=== PATIENT | female | born 1975 | race African-American/Black ===

== ENCOUNTER 2022-12-24 11:55 | Outpatient (REF) | payer OTHER, SELFPAY ==
[2022-12-24 13:50] LABS: MANUAL DIFF FLAG NO
[2022-12-24 13:57] LABS: Basophils Absolute Auto 0.1 X10*3/uL (0.0-0.2); Basophils Percent Auto 0.4 % (0-2); Eosinophils Absolute Auto 0.2 X10*3/uL (0.0-0.4); Eosinophils Percent Auto 1.3 % (0-4); Hematocrit 40.4 % (42.0-52.0); Hemoglobin 12.7 g/dl (14.0-18.0); Imm Gran Abs Auto 0.09 X10*3/uL (0.00-0.03); Imm Gran Pct Auto 0.8 % (0.0-0.4); Lymphocytes Absolute Auto 3.1 X10*3/uL (1.2-4.9); Lymphocytes Percent Auto 25.7 % (20-40); Mean Corpuscular HGB Conc 31.4 g/dl (31.0-36.0); Mean Corpuscular Hemoglobin 26.9 pg (27.0-33.0); Mean Corpuscular Volume 85.6 fL (80.0-98.0); Mean Platelet Volume 11.8 fL (9.4-12.4); Monocytes Absolute Auto 0.8 X10*3/uL (0.1-1.2); Monocytes Percent Auto 7.1 % (2-11); Neutrophils Absolute Auto 7.7 x10*3/uL (2.0-8.3); Neutrophils Percent Auto 64.7 % (45-73); Platelet Count 316 X10*3/uL (160-400); Red Blood Count 4.72 X10*6/uL (4.60-5.80); White Blood Count 11.9 X10*3/uL (4.8-10.8)
[2022-12-24 14:56] LABS: Alanine Aminotransferase 30 U/L (0-40); Albumin Level 3.8 g/dL (3.5-5.0); Alkaline Phosphatase 93 U/L (39-117); Anion Gap 11 (12-20); Aspartate Amino Transferase 25 U/L (5-37); Bilirubin Total 0.3 mg/dL (0.0-1.0); Blood Urea Nitrogen 8 mg/dL (9-16); Carbon Dioxide 24 mmol/L (22-29); Chloride 108 mmol/L (96-108); Cholesterol 180 mg/dL; Estimated Glomerular Filt Rate > 60; Glucose Fasting 99 mg/dL (60-99); HDL Cholesterol 39 mg/dL; LDL Cholesterol Calculated 127 mg/dl; Potassium 4.1 mmol/L (3.3-5.1); Sodium 139 mmol/L (135-145); Total Protein 7.1 g/dL (6.5-8.0); Triglycerides 74 mg/dL
[2022-12-24 15:01] LABS: TSH reflex Free T4 1.95 uIU/mL (0.32-4.0)
== END 2022-12-24 11:56 | disposition home or self-care (01) ==
LOC: HO.WFDLDS 11:55
PROVIDERS: Visit Provider Nurse Practitioner Family
DX: Z00.00 Encounter for general adult medical examination without abnormal findings (principal); R30.0 Dysuria
CPT/HCPCS: 36415; 80053; 80061; 84443; 85025

== ENCOUNTER 2022-12-24 11:56 | Outpatient (REF) | payer OTHER, SELFPAY ==
[2022-12-24 14:07] LABS: Appearance Urine Clear; Color Urine Yellow; Glucose Urine UA Negative (Negative); Leukocyte Esterase Urine Moderate (2+) (Negative); Nitrite Urine Negative (Negative); Specific Gravity - Urine 1.015 (1.005-1.025); UMIC TRIGGER UACC YES; Urine Blood Trace (Negative); Urine Ketones Negative (Negative); Urine Protein Negative (Neg-Trace)
[2022-12-24 14:10] LABS: Bacteria Urine None Seen (None Seen); Hyaline Casts Urine 0-2 /LPF (0-2); UACC Culture Trigger YES
[2022-12-25 12:18] LABS: BV Int Neg Control Negative (Negative); BV Int Pos Control Positive (Positive)
== END 2022-12-24 11:57 | disposition home or self-care (01) ==
LOC: HO.LAB 11:56
PROVIDERS: Visit Provider Nurse Practitioner Family
DX: R30.0 Dysuria (principal); Z20.2 Contact with and (suspected) exposure to infections with a predominantly sexual mode of transmission
CPT/HCPCS: 81001; 81003; 87086; 87480; 87510; 87660

== ENCOUNTER 2023-03-13 11:24 | Outpatient (REF) | payer OTHER, SELFPAY ==
[2023-03-15 14:50] LABS: BV Int Neg Control Negative (Negative); BV Int Pos Control Positive (Positive)
== END 2023-03-13 11:25 | disposition home or self-care (01) ==
LOC: HO.LNP 11:24
PROVIDERS: Visit Provider Nurse Practitioner Family
DX: R30.0 Dysuria (principal)
CPT/HCPCS: 87480; 87510; 87660

== ENCOUNTER 2023-03-14 11:51 | Outpatient (REF) | payer OTHER, SELFPAY ==
[2023-03-14 12:21] LABS: Appearance Urine Clear; Color Urine Yellow; Glucose Urine UA Negative (Negative); Leukocyte Esterase Urine Moderate (2+) (Negative); Nitrite Urine Negative (Negative); UMIC TRIGGER UACC YES; Urine Blood Negative (Negative); Urine Ketones Negative (Negative); Urine Protein Negative (Neg-Trace)
[2023-03-14 12:37] LABS: Bacteria Urine None Seen (None Seen); Hyaline Casts Urine 0-2 /LPF (0-2); RBC Urine 0-2 /HPF (0-2); WBC Urine 0-5 /HPF (0-5)
[2023-03-14 13:03] LABS: UACC Culture Trigger YES
[2023-03-14 13:50] LABS: CT PCR NOT DETECTED (Not Detect.); NG PCR NOT DETECTED (Not Detect.)
== END 2023-03-14 11:52 | disposition home or self-care (01) ==
LOC: HO.LNP 11:51
PROVIDERS: Visit Provider Nurse Practitioner Family
DX: R30.0 Dysuria (principal)
CPT/HCPCS: 0353U; 81001; 81003; 87086

== ENCOUNTER 2023-03-26 08:17 | Outpatient (REF) | payer OTHER, SELFPAY | END 2023-03-26 08:18 | disposition home or self-care (01) | LOC: HO.LAB 08:17 | PROVIDERS: Visit Provider Nurse Practitioner Family | DX: Z13.89 Encounter for screening for other disorder (principal) ==

== ENCOUNTER 2024-02-02 10:19 | Outpatient (AMB) | payer OTHER, SELFPAY ==
[2024-02-02 10:23] VITALS: BP 128/70; PULSE 90; RESP 14; TEMP 36.1; O2SAT 98; BMI 36.1
--- NOTE | 2024-02-02 10:23 | MHC.PC.OV ---
Vital Signs 02/02/24 10:23 Height 5 ft 5 in Weight 217 lb 2 oz BMI 36.1 BP 128/70 Blood Pressure Location Rt brachial Position Sitting Respiration 14 Pulse 90 Pulse Source Pulse Oximeter Temp 97 F Temp Source Temporal Artery Scan Pulse Oximetry (%) 98 Oxygen Delivery Method Room Air Intake Visit Reasons: Hard Pain Plate Stacker Hand Required: Yes Plate Stacker Hand Name: [id number] Accompanied by: Self / Same As Patient Allergies No Known Allergies Allergy (Verified 02/02/24 11:00) Tobacco use date assessed: 02/02/24 Dental Screening Dental Screen Date: 02/02/24 Did you have a dental visit in the last 12 months?: Yes Did you have a dental problem in the last 6 months where you did not have access to dental care?: No Was dental information given to patient?: Patient has dentist HPI HPI Comments History of Present Illness Details 48-year-old female presents with complaints of intermittent cramping/throbbing pain to the dorum of her right hand for the past past two weeks. The pain is worse at night. The pain started about a month ago and completely resolved. She is [id number] and admits to using the hand constantly for sign language in cleaning her home. Ice provides some relief. She has not been taking medication for the pain. She denies fall, injury, or trauma. No tingling, numbness, or loss of sensation of the hand. She request the flu vaccine She has h/o congenital bilateral hearing loss and mutism Interpretation by professional signal intelligence/electronic warfare via electronic tablet [facility] Medical History (Updated 02/02/24 @ 11:07 by Jose Guido ORTHOPEDICS NURSE) No pertinent past medical history Surgical History (Updated 02/02/24 @ 10:35 by CHINO Vee) No pertinent past surgical history Social History Housing: Other Housing Other:: [employer] (temporary) Patient Tobacco Use Status: Never used Tobacco e-Cigarette/Vaping Use: Never Used service: No Current occupational status: unemployed Cognitive needs: No Hearing needs: Yes Vision needs: No Review of Systems Const Details: Const Denies chills, Denies fatigue, Denies fever(s), Denies headache(s) and Denies weakness ENT Denies dizziness and Denies headache(s) Card Denies chest pain, Denies lightheadedness, Denies dyspnea and Denies other (Palpitations) Resp Denies cough, Denies dyspnea, Denies wheezing and Denies other ( shortness of breath) GI Denies abdominal pain, Denies melena, Denies hematochezia, Denies change in bowel habits, Denies dyspepsia and Denies nausea Denies hematuria and Denies dysuria Musc Reports as per HPI Skin/Breast Denies rash, Denies unusual bruising and Denies wounds Neuro Denies abnormal gait, Denies dizziness, Denies headache(s), Denies memory loss, Denies numbness, Denies Sensory deficit (Neuro), Denies tingling and Denies weakness Psych Denies anxiety, Denies depression, Denies memory loss Endo Denies cold intolerance, Denies fatigue, Denies heat intolerance, Denies polydipsia and Denies polyuria Aller/Immun Denies wheezing Physical exam (Primary Care) Vital Signs: Last Vital Signs Temp 97 F 02/02/24 10:23 Pulse 90 02/02/24 10:23 Resp 14 02/02/24 10:23 BP 128/70 02/02/24 10:23 Pulse Ox 98 02/02/24 10:23 Oxygen Delivery Method Room Air 02/02/24 10:23 BMI result Body Mass Index 36.1 Tobacco/Smoking Status: Tobacco use Status Tobacco use date assessed 02/02/24 02/02/24 10:37 Patient Tobacco Use Status Never used Tobacco 02/02/24 10:37 e-Cigarette/Vaping Use Never Used 02/02/24 10:37 Const Other: General: no acute distress and well developed Nutritional Appearance: well nourished Orientation/consciousness: patient oriented x3 HENMT Head: Yes normocephalic and Yes atraumatic Eyes General: appearance normal, both eyes and all related structures Pupils: Equal, round and reactive pupils present EOM: EOMs intact bilaterally Resp Effort & Inspection: normal respiratory effort Auscultation: clear to auscultation bilaterally Cardio Rate: regular rate Rhythm: regular rhythm Heart sounds: S1 normal heart sound present, S2 normal heart sound present, no gallops, no murmurs and no rubs GI Palpation (GI): No Abdominal aortic bruit present, Soft to palpation, nontender, No hepatosplenomegaly present and No Rebound tenderness present Auscultation: normal bowel sounds General: Yes no CVA tenderness Back/Spine/Pelvis Back: no CVA tenderness Cervical Spine: cervical ROM normal and No Cervical spine tenderness Thoracic/Lumbar Spine: thoraco-lumbar ROM normal, No pain with thoraco-lumbar ROM, No thoracic spinal tenderness and No lumbar spinal tenderness Extrem General: Yes normal to inspection, No edema and No calf tenderness Tenderness to palpation of the dorsum of the right hand, MCP and PIP joints Skin General: warm and dry. Normal skin color. Normal skin turgor Neuro General: patient oriented x3, gait normal and no focal neuro deficit Cranial nerves: Yes Equal, round and reactive pupils present Cognition (Neuro): normal cognition Gait exam (Neuro): Normal gait present Sensory Exam: No Sensory deficit (Neuro) Psych Appearance: grossly normal Affect: normal affect Attitude: cooperative Thought process: Normal thought process present Assessment and Plan Assessment & Plan (1) Right hand pain: Code(s): M79.641 - Pain in right hand Plan: Right hand pain x2 weeks Tenderness to palpation of the dorsum of the right hand, MCP and PIP joints. No overt signs of trauma Likely strain or sprain. Arthritis is also possible Ibuprofen 600 mg every 8 hours as needed and cyclobenzaprine 10 mg twice daily as needed ordered. Advised to take as prescribed. Instructed on the risks, benefits, and potential adverse reactions of these medications Warm/cold compresses encouraged Encouraged to avoid repetitive use of the right hand until healed Follow-up in 1 month for an extended physical exam Return sooner with symptoms or concerns Verbalized understanding and agreed with treatment plan Flu vaccine administered in the office today by the nurse (2) Laboratory tests ordered as part of a complete physical exam (CPE): Code(s): Z00.00 - Encounter for general adult medical examination without abnormal findings Plan: Fasting labs ordered in preparation of a complete physical exam. Advised to fast for at least 10 hours before getting labs drawn. May drink water Verbalized understanding and agreed with treatment plan. Orders: Orders Complete Blood Count Auto Diff Today Z00.00 - Encounter for general adult medical examination without abnormal findings Comprehensive [place]. Panel Fast Today Z00.00 - Encounter for general adult medical examination without abnormal findings TSH reflex Free T4 Today Z00.00 - Encounter for general adult medical examination without abnormal findings Lipid Panel Today Z00.00 - Encounter for general adult medical examination without abnormal findings UA CC w/rflx Micro + Cult Today Z00.00 - Encounter for general adult medical examination without abnormal findings Medications: New ibuprofen 600 mg PO Q8H PRN 60 tabs 1RF pain cyclobenzaprine 10 mg PO BID PRN 30 tabs 0RF muscle spasm Coding Level of Care Code Est Pt Level 3 (54031) Diagnoses Right hand pain M79.641 Laboratory tests ordered as part of a complete physical exam (CPE) Z00.00
== END 2024-02-02 12:26 | disposition home or self-care (01) ==
PROVIDERS: PCP Nurse Practitioner Family; Visit Provider Nurse Practitioner Family
DX: M79.641 Pain in right hand (principal); Z00.00 Encounter for general adult medical examination without abnormal findings; Z23 Encounter for immunization
CPT/HCPCS: 90471; 90686; 99213

== ENCOUNTER 2024-03-19 15:58 | Outpatient (AMB) | payer OTHER, SELFPAY ==
[2024-03-19 16:04] VITALS: BP 132/66; PULSE 94; RESP 14; TEMP 36.6; O2SAT 99; BMI 37.2
--- NOTE | 2024-03-19 16:04 | A.OFFPC_ITS ---
Vital Signs 03/19/24 16:04 Height 5 ft 5 in Weight 223 lb 6 oz BMI 37.2 BP 132/66 Blood Pressure Location Rt brachial Position Sitting Respiration 14 Pulse 94 Pulse Source Pulse Oximeter Temp 97.8 F Temp Source Temporal Artery Scan Pulse Oximetry (%) 99 Oxygen Delivery Method Room Air Intake Visit Reasons: itchy skin Green Marketing Specialist Required: Yes Green Marketing Specialist Name: Rubi ([id number]) Accompanied by: Self / Same As Patient Allergies No Known Allergies Allergy (Verified 03/19/24 16:18) Medication List - Last Reconciled 03/19/24 by Jose Guido CNP cyclobenzaprine 10 mg PO BID PRN ibuprofen 600 mg PO Q8H PRN Tobacco use date assessed: 03/19/24 Dental Screening Dental Screen Date: 02/02/24 HPI HPI Comments History of Present Illness Details 48-year-old female with congenital bilat eral hearing loss and mutism, presents with complaints of persistent dry, and very itchy facial skin for the past 3 weeks. Her symptoms are severe after taking a shower. She has been applying lotion to to her face 3 times daily without relief. She states that she has been using the lotion for the 2-3 months. She notes intermittent mild facial rash and moderate facial swelling. No difficulty breathing or swallowing. No new body wash or laundry detergent. Interpretation by professional junior graphic designer via electronic tablet [facility] Medical History No pertinent past medical history Surgical History No pertinent past surgical history Social History Housing: Other Housing Other:: [employer] (temporary) Patient Tobacco Use Status: Never used Tobacco e-Cigarette/Vaping Use: Never Used service: No Current occupational status: unemployed Cognitive needs: No Hearing needs: Yes Vision needs: No Review of Systems Const Details: Const Denies chills, Denies fatigue, Denies fever(s), Denies headache(s) and Denies weakness ENT Denies dizziness and Denies headache(s) Card Denies chest pain, Denies lightheadedness, Denies dyspnea and Denies other (Palpitations) Resp Denies cough, Denies dyspnea, Denies wheezing and Denies other ( shortness of breath) GI Denies abdominal pain, Denies melena, Denies hematochezia, Denies change in bowel habits, Denies dyspepsia and Denies nausea Denies hematuria and Denies dysuria Musc Denies abnormal gait, Denies myalgias, Denies arthralgias, Denies numbness and Denies tingling Skin/Breast Denies rash, Denies unusual bruising and Denies wounds Neuro Denies abnormal gait, Denies dizziness, Denies headache(s), Denies memory loss, Denies numbness, Denies Sensory deficit (Neuro), Denies tingling and Denies weakness Psych Denies anxiety, Denies depression, Denies memory loss Endo Denies cold intolerance, Denies fatigue, Denies heat intolerance, Denies polydipsia and Denies polyuria Aller/Immun Denies wheezing Physical exam (Primary Care) Vital Signs: Last Vital Signs Temp 97.8 F 03/19/24 16:04 Pulse 94 03/19/24 16:04 Resp 14 03/19/24 16:04 BP 132/66 03/19/24 16:04 Pulse Ox 99 03/19/24 16:04 Oxygen Delivery Method Room Air 03/19/24 16:04 BMI result Body Mass Index 37.2 Tobacco/Smoking Status: Tobacco use Status Tobacco use date assessed 03/19/24 03/19/24 16:15 Patient Tobacco Use Status Never used Tobacco 03/19/24 16:10 e-Cigarette/Vaping Use Never Used 03/19/24 16:10 Const Other: General: no acute distress and well developed Nutritional Appearance: well nourished Orientation/consciousness: patient oriented x3 HENMT Head: Yes normocephalic and Yes atraumatic Eyes General: appearance normal, both eyes and all related structures Pupils: Equal, round and reactive pupils present EOM: EOMs intact bilaterally Resp Effort & Inspection: normal respiratory effort Auscultation: clear to auscultation bilaterally Cardio Rate: regular rate Rhythm: regular rhythm Heart sounds: S1 normal heart sound present, S2 normal heart sound present, no gallops, no murmurs and no rubs GI Palpation (GI): No Abdominal aortic bruit present, Soft to palpation, nontender, No hepatosplenomegaly present and No Rebound tenderness present Auscultation: normal bowel sounds General: Yes no CVA tenderness Back/Spine/Pelvis Back: no CVA tenderness Cervical Spine: cervical ROM normal and No Cervical spine tenderness Thoracic/Lumbar Spine: thoraco-lumbar ROM normal, No pain with thoraco-lumbar ROM, No thoracic spinal tenderness and No lumbar spinal tenderness Extrem General: Yes normal to inspection, No edema and No calf tenderness Skin General: warm and dry. Normal skin color. Normal skin turgor Lesions: no lesions Rashes: no rashes Trauma: no lacerations or abrasions Wounds: no wounds Nails: normal Neuro General: patient oriented x3, gait normal and no focal neuro deficit Cranial nerves: Yes Equal, round and reactive pupils present Cognition (Neuro): normal cognition Gait exam (Neuro): Normal gait present Sensory Exam: No Sensory deficit (Neuro) Psych Appearance: grossly normal Affect: normal affect Attitude: cooperative Thought process: Normal thought process present Assessment and Plan Assessment & Plan (1) Itching: Code(s): L29.9 - Pruritus, unspecified Plan: Reports persistent dry facial skin and itching. No dry skin, rash or swelling noted Likely environmental allergic reaction Encouraged to continue to apply lotion to dry skin; may use Cetaphil or Lubriderm twice daily Hydrocortisone cream ordered. Advised to apply sparingly to her face and avoid applying close to her eyes Benadryl 25 mg every night times 14 days ordered Encouraged to get outstanding lab work done and follow-up in 2-4 weeks for an extended physical exam or sooner with worsening or new symptoms Verbalized understanding and agreed with the treatment plan Medications: New diphenhydramine HCl (Benadryl Allergy) 25 mg PO BEDTIME PRN 14 tabs 0RF sleep 14 days hydrocortisone 0.5% 1 appl topical BID PRN 28.4 grams 0RF itching 14 days Coding Level of Care Code Est Pt Level 3 (66030) Diagnoses Itching L29.9
== END 2024-03-19 16:48 | disposition home or self-care (01) ==
PROVIDERS: PCP Nurse Practitioner Family; Visit Provider Nurse Practitioner Family
DX: L29.9 Pruritus, unspecified (principal)
CPT/HCPCS: 99213

== ENCOUNTER 2024-05-10 12:43 | Outpatient (AMB) | payer OTHER, MEDICAID, SELFPAY ==
--- NOTE | 2024-05-10 12:51 | A.OFFPC_ITS ---
Vital Signs 05/10/24 13:05 Height 5 ft 5 in Weight 215 lb 6 oz BMI 35.8 BP 120/68 Blood Pressure Location Lt brachial Position Sitting Respiration 16 Pulse 91 Pulse Source Pulse Oximeter Temp 97.9 F Temp Source Oral Pulse Oximetry (%) 98 Oxygen Delivery Method Room Air Intake Visit Reasons: Rescedule from 04/26 Intake Note: patient here for follow up and med refill. Greeting Card Maker Required: Yes Is last menstrual period known: Yes (no period the last 2 month) Post menopausal: No Allergies No Known Allergies Allergy (Verified 05/10/24 13:25) Medication List - Last Reconciled 05/10/24 by Jose Guido CNP cyclobenzaprine 10 mg PO BID PRN diphenhydramine HCl (Benadryl Allergy) 25 mg PO BEDTIME PRN 14 days hydrocortisone 0.5% 1 appl topical BID PRN 14 days ibuprofen 600 mg PO Q8H PRN Tobacco use date assessed: 05/10/24 Dental Screening Dental Screen Date: 05/10/24 Did you have a dental visit in the last 12 months?: No Did you have a dental problem in the last 6 months where you did not have access to dental care?: No Was dental information given to patient?: Yes HPI HPI Comments History of Present Illness Details 48-year-old female presents for an exten ded physical exam She has past medical history significant for congenital bilateral hearing loss, mutism, and obesity She reports intermittent pain to her right hand. No tingling, numbness, or loss of sensation. She requests cyclobenzaprine refill She notes that she makes healthy dietary changes. She notes that she not been getting adequate sleep, she sleeps an average of 4 hours. She notes that she notes that she goes to bed at 11pm. She sometimes take Advil PM without improvement. She denies spending significant about of time watching television. She admits to drinking a lot of water before going to bed and has to use the bathroom when she wakes up. She notes that she walks and runs about 4 times weekly Nonsmoker. Does not drink alcohol. No recreational drug use She notes that she has never had a pap smear test. She was referred to [facility] market manager last year She states that she has never had mammogram done. She was busy to schedule an appointment She states that she has never had a colonoscopy Interpretation by professional infrastructure design engineer via electronic tablet [facility] Medical History No pertinent past medical history Surgical History No pertinent past surgical history Social History Housing: Other Housing Other:: [employer] (temporary) Patient Tobacco Use Status: Never used Tobacco e-Cigarette/Vaping Use: Never Used service: No Current occupational status: unemployed Cognitive needs: No Hearing needs: Yes Vision needs: No Questionnaire PHQ-9 Over the last 2 weeks, how often have you been bothered by any of the following problems? 1. Little interest or pleasure in doing things: not at all 2. Feeling down, depressed, or hopeless: not at all 3. Trouble falling or staying asleep, or sleeping too much: nearly every day 4. Feeling tired or having little energy: nearly every day 5. Poor appetite or overeating: not at all 6. Feeling bad about yourself - or that you are a failure or have let yourself or your family down: not at all 7. Trouble concentrating on things, such as reading the newspaper or watching television: not at all 8. Moving or speaking so slowly that other people could have noticed. Or the opposite - being so fidgety or restless that you have been moving around a lot more than usual: not at all 9. Thoughts that you would be better off or of hurting yourself in some way: not at all Total score: 6 Depression Screening Interpretation: Negative Depression Screening Done: Yes 67443 - PHQ-9 Billing: Yes Source: Developed by Drs. Gaor Ordonez, Jeanie Townsend, Carlos Sandra and colleagues, with an educational pieter from [employer]. AUDIT C Alcohol Use Questionnaire (AUDIT-C) 1. How often do you have a drink containing alcohol?: Never Total Score: 0 Score Reviewed/Action Taken: Yes SANJUANITA-7 AMB Questionnaire SANJUANITA-7 Date SANJUANITA - 7 assessed: 05/10/24 Feeling nervous, anxious, or on edge: 0 = Not at all Not being able to stop or control worryin = Not at all Worrying too much about different things: 0 = Not at all Trouble relaxin = Several days Being so restless that it is hard to sit still: 0 = Not at all Becoming easily annoyed or irritable: 0 = Not at all Feeling afraid as if something awful might happen: 0 = Not at all Total SANJUANITA-7 score (0-4 normal; 5-9 mild; 10-14 moderate; 15-21 severe): 1 Source: Developed by Drs. Garo Ordonez, Jeanie Townsend, Carlos Sandra and colleagues, with an educational pieter from [employer]. SANJUANITA-7 Assessment Billing SANJUANITA-7 Assessment Tool: SANJUANITA-7 Assessment 38555 Review of Systems Const Details: Denies chills, Denies fatigue, Denies fever(s), Denies headache(s) and Denies weakness HEENT Denies change in vision, Denies dizziness, Denies headache(s), Denies hearing loss, Denies nasal congestion, Denies sinus pain, Denies sinus pressure and Denies sore throat Card Denies chest pain, Denies lightheadedness, Denies dyspnea and Denies other (palpitations) Resp Denies cough, Denies dyspnea and Denies wheezing GI Denies abdominal pain, Denies melena, Denies hematochezia, Denies change in bowel habits, Denies dyspepsia and Denies nausea Denies hematuria and Denies dysuria Musc Denies abnormal gait, Denies myalgias, Denies arthralgias, Denies numbness and Denies tingling Skin/Breast Denies rash, Denies unusual bruising and Denies wounds Neuro Denies abnormal gait, Denies dizziness, Denies headache(s), Denies memory loss, Denies numbness, Denies Sensory deficit (Neuro), Denies tingling and Denies weakness Psych Denies anxiety, Denies depression and Denies memory loss Endo Denies cold intolerance, Denies fatigue, Denies heat intolerance, Denies polydipsia and Denies polyuria Sterling/Lymph Denies easy bleeding and Denies easy bruising Aller/Immun Denies wheezing Physical exam (Primary Care) Vital Signs: Last Vital Signs Temp 97.9 F 05/10/24 13:05 Pulse 91 05/10/24 13:05 Resp 16 05/10/24 13:05 BP 120/68 05/10/24 13:05 Pulse Ox 98 05/10/24 13:05 Oxygen Delivery Method Room Air 05/10/24 13:05 BMI result Body Mass Index 35.8 Tobacco/Smoking Status: Tobacco use Status Tobacco use date assessed 03/19/24 05/10/24 12:53 Patient Tobacco Use Status Never used Tobacco 05/10/24 12:53 e-Cigarette/Vaping Use Never Used 05/10/24 12:53 Depression Screening Interpretation: Negative Const Other: General: no acute distress, well developed, alert and awake Nutritional Appearance: well nourished Orientation/consciousness: patient oriented x3 HENMT Head: Yes normocephalic and Yes atraumatic Ears: hearing grossly normal bilaterally and TM's normal bilaterally General nose exam: Normal external nose present and Normal nares present Mouth: Normal oral and palatal mucosa present and moist mucous membranes Teeth and gingiva: dentition normal Throat: Yes oropharynx normal Eyes Pupils: Equal, round and reactive pupils present and Pupil accommodation reflex normal EOM: EOMs intact bilaterally Neck Neck: Yes normal visual inspection, Yes no lymphadenopathy and Yes trachea midline Thyroid: Thyroid normal Carotids: no bruits Lymphatic: no lymphadenopathy noted Chest Chest palpation & inspection: normal inspection of the chest Resp Effort & Inspection: normal respiratory effort Auscultation: clear to auscultation bilaterally Cardio Rate: regular rate Rhythm: regular rhythm Heart sounds: S1 normal heart sound present, S2 normal heart sound present, no gallops, no murmurs and no rubs Bruits: no abdominal aortic bruits and no carotid bruits GI Palpation (GI): No Abdominal aortic bruit present, Soft to palpation, nontender, No hepatosplenomegaly present and No Rebound tenderness present Auscultation: normal bowel sounds General: Yes no CVA tenderness Back/Spine/Pelvis Back: no CVA tenderness Cervical Spine: cervical ROM normal and No Cervical spine tenderness Thoracic/Lumbar Spine: thoraco-lumbar ROM normal, No pain with thoraco-lumbar ROM, No thoracic spinal tenderness and No lumbar spinal tenderness Skin General: warm and dry. Normal skin color. Normal skin turgor Lesions: no lesions Rashes: no rashes Trauma: no lacerations or abrasions Wounds: no wounds Nails: normal Neuro General: patient oriented x3, gait normal and CN's II-XI intact bilaterally Cranial nerves: Yes Equal, round and reactive pupils present Cognition (Neuro): normal cognition Gait exam (Neuro): Normal gait present Motor exam (neuro): 5/5 motor strength present throughout Sensory Exam: No Sensory deficit (Neuro) Deep tendon reflexes (DTR's): Right patellar reflex intensity grade: 2+ and Left patellar reflex intensity grade: 2+ Extrem General: Yes normal to inspection, No edema and No calf tenderness Psych Appearance: grossly normal Affect: normal affect Attitude: cooperative Thought process: Normal thought process present Assessment and Plan Assessment & Plan (1) Physical exam, annual: Code(s): Z00.00 - Encounter for general adult medical examination without abnormal findings Plan: No significant physical restrictions or limitations noted Continue current treatment regimen Healthy diet and routine exercise encouraged Advised to get lab work done as soon as she can. Will review results and make changes as needed Encouraged to schedule her next physical for a year from today Return with symptoms or concerns Verbalized understanding and agreed with treatment plan (2) Right hand pain: Code(s): M79.641 - Pain in right hand Plan: Intermittent right hand pain. No tingling, numbness, or loss of sensation Cyclobenzaprine and ibuprofen refilled as requested X-ray ordered. Will review results and make changes as needed Follow-up with worsening or new symptoms. May referred to occupational therapy Verbalized understanding and agreed with the treatment plan (3) Pap smear for cervical cancer screening: Code(s): Z12.4 - Encounter for screening for malignant neoplasm of cervix Plan: She never had a Pap smear test Referred to [facility] alumni relations officer for a Pap smear test (4) Colon cancer screening: Code(s): Z12.11 - Encounter for screening for malignant neoplasm of colon Plan: She has never had a colonoscopy Referred to [facility] gastroenterology for colonoscopy (5) Breast cancer screening by mammogram: Code(s): Z12.31 - Encounter for screening mammogram for malignant neoplasm of breast Plan: She has never had a mammogram Mammogram ordered (6) Insomnia: Code(s): G47.00 - Insomnia, unspecified Qualifiers: Insomnia type: other insomnia Qualified Code(s): G47.09 - Other insomnia Plan: She reports poor night sleep; sleeps an average of 4 hours Instructed on sleep hygiene Routine exercise encouraged Melatonin ordered. Advised to take as prescribed Follow-up with worsening or new symptoms Verbalized understanding and agreed with the treatment plan (7) Obesity (BMI 30-39.9): Code(s): E66.9 - Obesity, unspecified Plan: She currently weighs 215 lb, BMI is 35.8 She has been making healthy dietary changes and exercising routinely Healthy diet and routine exercise encouraged Follow-up with symptoms or concerns Verbalized understanding and agreed with the plan Orders: Orders MM screening mammo BI Today Z12.31 - Encounter for screening mammogram for malignant neoplasm of breast XR hand RT 2V Today M79.641 - Pain in right hand 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 OPERATOR Referral Z12.4 - Encounter for screening for malignant neoplasm of cervix Gastroenterology Referral Z12.11 - Encounter for screening for malignant neoplasm of colon Medications: New melatonin 3 mg PO BEDTIME PRN 30 caps 0RF sleep Refilled ibuprofen 600 mg PO Q8H PRN 60 tabs 1RF pain Discontinued diphenhydramine HCl (Benadryl Allergy) Discontinued Reason: Doctor's Order 25 mg PO BEDTIME 14 days PRN 14 tabs 0RF sleep Coding Level of Care Code Est Pt Level 4 (58247) Est Pt Prev Care 40-64y(12335) Diagnoses Physical exam, annual Z00.00 Right hand pain M79.641 Pap smear for cervical cancer screening Z12.4 Colon cancer screening Z12.11 Breast cancer screening by mammogram Z12.31 Other insomnia G47.09 Insomnia type: other insomnia Obesity (BMI 30-39.9) E66.9 Additional Codes SANJUANITA-7 Assessment Billing - SANJUANITA-7 Assessment Tool: SANJUANITA-7 Assessment 26566 ([id number])
[2024-05-10 13:05] VITALS: BP 120/68; PULSE 91; RESP 16; TEMP 36.6; O2SAT 98; BMI 35.8
== END 2024-05-10 14:09 | disposition home or self-care (01) ==
PROVIDERS: PCP Nurse Practitioner Family; Visit Provider Nurse Practitioner Family
DX: Z00.00 Encounter for general adult medical examination without abnormal findings (principal); M79.641 Pain in right hand; G47.09 Other insomnia; E66.9 Obesity, unspecified
CPT/HCPCS: 99214; 99396

== ENCOUNTER 2024-09-11 00:53 | Emergency (ER) | payer OTHER, MEDICAID, SELFPAY ==
[2024-09-11 01:01] VITALS: BP 153/82; BP 156/83; PULSE 85; PULSE 88; RESP 15; TEMP 37; O2SAT 98; O2SAT 99; BMI 33.7
--- NOTE | 2024-09-11 01:09 | ED_ITS ---
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) History of Present Illness ED Provider: HPI narrative: Patient complaining of dysuria and frequency and vaginal discharge for last few days patient not sexually active no history of STI no history of kidney stones fever no chills no nausea no vomiting patient no sexually active no history of STI Related Data Previous Rx's ?Medication ?Instructions ?Recorded hydrocortisone 0.5 % topical cream 1 appl topical BID PRN itching 14 03/19/24 days #28.4 grams cyclobenzaprine 10 mg tablet 10 mg PO BID PRN muscle spasm #30 08/30/24 tabs ibuprofen 600 mg tablet 600 mg PO Q8H PRN pain #60 tabs 08/30/24 melatonin 3 mg capsule 3 mg PO BEDTIME PRN sleep #30 caps 08/30/24 metronidazole 500 mg tablet 500 mg PO BID 7 days #14 tabs 09/11/24 nitrofurantoin 100 mg PO Q12H 7 days #14 caps 09/11/24 monohydrate/macrocrystals 100 mg capsule (Macrobid) Allergies Allergy/AdvReac Type Severity Reaction Status Date / Time No Known Allergies Allergy Verified 09/11/24 01:03 Review of Systems 2 Review of Systems: Yes all other systems are reviewed and are negative [facility] Past Medical History Medical History No pertinent past medical history Surgical History No pertinent past surgical history Social History Social History Housing: Other Housing Other:: [facility] [employer] (temporary) Patient Tobacco Use Status: Never used Tobacco Smoked in Last 30 Days: No e-Cigarette/Vaping Use: Never Used Use of substances other than those prescribed or required for medical reasons: No Advance Directives: No Advance Directives Information Provided: Yes Do you have a plan to hurt others: No Plan Patient : No service: No Current occupational status: unemployed Cognitive needs: No Hearing needs: Yes Vision needs: No Physical Exam ED Vital Signs: Vital Signs - 24 hr 09/11/24 01:01 09/11/24 02:00 Temperature 98.6 F 98.9 F Pulse Rate 85 88 Respiratory Rate 15 16 Blood Pressure 156/83 H 154/89 H Pulse Oximetry 98 97 Oxygen Delivery Method Room Air Room Air BMI result Body Mass Index 33.7 Appearance: Alert. Oriented X3. No acute distress. Eyes: PERRLA, No Nystagmus ENT: Pharynx normal. Oral Mucosa moist Neck: Normal inspection. Neck supple. CVS: Normal heart rate and rhythm. Pulses normal. Respiratory: No respiratory distress. Equal air entry bilateral, no wheezing/rales/rhonchi Abdomen: Soft and nontender. Bowel sounds are present, no mass palpable, no CVA tenderness Skin: Skin warm and dry. Normal skin color. Normal skin turgor. Extremities: No lower extremity edema. No calf tenderness Neuro: Oriented X 3. No motor deficit. No sensory deficit.No cerebellar signs , cranial nerves II-XII intact Medications Administered Discontinued Medications Generic Name Dose Route Start Last Admin Trade Name Quentinq PRN Reason Stop Dose Admin Fluconazole 150 mg 09/11/24 01:53 09/11/24 02:04 Fluconazole 150 Mg Tablet PO 09/11/24 01:54 150 mg ONCE ONE Administration Nitrofurantoin Macrocrystals 100 mg 09/11/24 01:53 09/11/24 02:04 Nitrofurantoin Monohyd/M-Cryst 100 Mg Capsule PO 09/11/24 01:54 100 mg ONCE ONE Administration Medical Decision Making Lab Data 09/11/24 01:25 09/11/24 01:25 Labs: Lab Results 09/11/24 Range/Units 01:25 WBC 11.8 H (4.8-10.8) X10*3/uL RBC 4.31 (4.20-5.50) X10*6/uL Hgb 12.3 (12.0-16.0) g/dl Hct 37.4 (37.0-47.0) % MCV 86.8 (80.0-98.0) fL MCH 28.5 (27.0-33.0) pg MCHC 32.9 (31.0-35.0) g/dl RDW 13.6 (11.0-16.0) % Plt Count 272 (160-400) X10*3/uL MPV 11.2 (9.4-12.3) fL Immature Gran % (Auto) 0.3 (0.0-0.4) % Neut % (Auto) 61.9 (45-73) % Lymph % (Auto) 29.3 (20-40) % Rush % (Auto) 6.4 (2-11) % Eos % (Auto) 1.5 (0-4) % Baso % (Auto) 0.6 (0-2) % Lymph # (Auto) 3.5 (1.2-4.9) X10*3/uL Rush # (Auto) 0.8 (0.1-1.2) X10*3/uL Eos # (Auto) 0.2 (0.0-0.4) X10*3/uL Baso # (Auto) 0.1 (0.0-0.2) X10*3/uL Abs Immat Gran (auto) 0.04 H (0.00-0.03) X10*3/uL Absolute Neuts (auto) 7.3 (2.0-8.3) x10*3/uL Absolute Nucleated RBC 0.000 (0.0-0.012) X10*3/uL Nucleated RBC % (auto) 0.0 (0.0-0.2) /100WBC Sodium 144 (135-145) mmol/L Potassium 3.6 (3.3-5.1) mmol/L Chloride 109 H (96-108) mmol/L Carbon Dioxide 25 (22-29) mmol/L Anion Gap 14 (12-20) BUN 15 (9-16) mg/dL Creatinine 0.82 (0.5-1.4) mg/dL Estim Creat Clear Calc 93.0 Estimated GFR > 60 Random Glucose 98 (60-115) mg/dL Calcium 9.6 D (8.4-10.2) mg/dL Total Bilirubin 0.2 (0.0-1.0) mg/dL AST 21 (5-31) U/L Total Protein 7.3 (6.5-8.0) g/dL Albumin 3.9 (3.5-5.0) g/dL Urine Color Yellow Urine Appearance Clear Urine pH 5.5 (5.0-9.0) Ur Specific [place] 1.025 (1.005-1.025) Urine Protein Negative (Neg-Trace) mg/dL Urine Glucose (UA) Negative (Negative) mg/dL Urine Ketones Negative (Negative) mg/dL Urine Blood Trace H (Negative) Urine Nitrite Negative (Negative) Ur Leukocyte Esterase Trace H (Negative) Urine RBC 3-5 H (0-2) /HPF Urine WBC 6-10 H (0-5) /HPF Ur Squamous Epith Cells 0-2 (0-2) /HPF Urine Bacteria None Seen (None Seen) Hyaline Casts 0-2 (0-2) /LPF Urine Test NEGATIVE (NEGATIVE) Discharge Plan Discharge Clinical Impression: UTI (urinary tract infection), Bacterial vaginosis Patient Disposition: Home, Self-Care Instructions: Bacterial Vaginosis (ED), Urinary Tract Infection in Women (ED) Additional Instructions: Drink plenty of fluids Take antibiotic as prescribed Follow with your PCP if not better Prescriptions: New nitrofurantoin monohyd/m-cryst [Macrobid] 100 mg capsule 100 mg PO Q12H 7 Days Qty: 14 0RF Rx Instructions: must administer with a meal/food metronidazole 500 mg tablet 500 mg PO BID 7 Days Qty: 14 0RF No Action cyclobenzaprine 10 mg tablet 10 mg PO BID PRN (Reason: muscle spasm) Qty: 30 0RF ibuprofen 600 mg tablet 600 mg PO Q8H PRN (Reason: pain) Qty: 60 1RF melatonin 3 mg capsule 3 mg PO BEDTIME PRN (Reason: sleep) Qty: 30 0RF hydrocortisone 0.5 % cream 1 appl topical BID PRN (Reason: itching) 14 Days Qty: 28.4 0RF Print Language: Czech Sign Language
--- NOTE | 2024-09-11 01:11 | PC.NURSE ---
pt a&ox4, respirations even and unlabored. ekg/ecg technician at bedside. pt reporting onset of lower abdominal discomfort, burning and pain with urination and itchiness in the vagina. pt denies nausea, vomiting, and diarrhea. pt denies blood in urine. pt ambulatory to bathroom with steady gait, urine sample obtained.
[2024-09-11 01:29] LABS: MANUAL DIFF FLAG NO
[2024-09-11 01:31] LABS: Basophils Absolute Auto 0.1 X10*3/uL (0.0-0.2); Basophils Percent Auto 0.6 % (0-2); Eosinophils Absolute Auto 0.2 X10*3/uL (0.0-0.4); Eosinophils Percent Auto 1.5 % (0-4); Hematocrit 37.4 % (37.0-47.0); Hemoglobin 12.3 g/dl (12.0-16.0); Imm Gran Abs Auto 0.04 X10*3/uL (0.00-0.03); Imm Gran Pct Auto 0.3 % (0.0-0.4); Lymphocytes Absolute Auto 3.5 X10*3/uL (1.2-4.9); Lymphocytes Percent Auto 29.3 % (20-40); Mean Corpuscular HGB Conc 32.9 g/dl (31.0-35.0); Mean Corpuscular Hemoglobin 28.5 pg (27.0-33.0); Mean Corpuscular Volume 86.8 fL (80.0-98.0); Mean Platelet Volume 11.2 fL (9.4-12.3); Monocytes Absolute Auto 0.8 X10*3/uL (0.1-1.2); Monocytes Percent Auto 6.4 % (2-11); Neutrophils Absolute Auto 7.3 x10*3/uL (2.0-8.3); Neutrophils Percent Auto 61.9 % (45-73); Platelet Count 272 X10*3/uL (160-400); Red Blood Count 4.31 X10*6/uL (4.20-5.50); Red Cell Distribution Width 13.6 % (11.0-16.0); White Blood Count 11.8 X10*3/uL (4.8-10.8)
[2024-09-11 01:35] LABS: Appearance Urine Clear; Color Urine Yellow; Glucose Urine UA Negative (Negative); Leukocyte Esterase Urine Trace (Negative); Nitrite Urine Negative (Negative); PH 5.5 (5.0-9.0); Specific Gravity - Urine 1.025 (1.005-1.025); UMIC TRIGGER UACC YES; Urine Blood Trace (Negative); Urine Ketones Negative (Negative); Urine Protein Negative (Neg-Trace)
[2024-09-11 01:37] LABS: Bacteria Urine None Seen (None Seen); Hyaline Casts Urine 0-2 /LPF (0-2); Squamous Epithelial Cell Urine 0-2 /HPF (0-2); UACC Culture Trigger YES
[2024-09-11 01:38] LABS: UPreg QC Valid YES; Urine Pregnancy NEGATIVE (NEGATIVE)
[2024-09-11 01:55] LABS: Albumin Level 3.9 g/dL (3.5-5.0); Anion Gap 14 (12-20); Aspartate Amino Transferase 21 U/L (5-31); Bilirubin Total 0.2 mg/dL (0.0-1.0); Blood Urea Nitrogen 15 mg/dL (9-16); Calcium 9.6 mg/dL (8.4-10.2); Carbon Dioxide 25 mmol/L (22-29); Chloride 109 mmol/L (96-108); Estimated Glomerular Filt Rate > 60; Glucose Random 98 mg/dL (60-115); Potassium 3.6 mmol/L (3.3-5.1); Sodium 144 mmol/L (135-145); Total Protein 7.3 g/dL (6.5-8.0)
[2024-09-11 02:00] VITALS: BP 154/89; PULSE 88; RESP 16; TEMP 37.2; O2SAT 97
[2024-09-11] MEDS: Nitrofurantoin Monohyd/M-Cryst 100 MG CAPSULE PO (02:04)
[2024-09-11] MEDS: Fluconazole 150 MG TABLET PO (02:04)
[2024-09-11] MEDS: metroNIDAZOLE 500 MG TABLET PO (02:22)
[2024-09-11 02:23] VITALS: BP 154/88; PULSE 86; RESP 16; TEMP 36.8; O2SAT 99
[2024-09-11 02:24] VITALS: BP 154/88; PULSE 86; RESP 16; TEMP 36.8; O2SAT 99
[2024-09-11 02:24] LABS: Alanine Aminotransferase 35 U/L (0-31); Alkaline Phosphatase 81 U/L (39-117)
[2024-09-11 13:07] LABS: Bacterial Vaginosis PCR NEGATIVE (Negative); Candida Group PCR NOT DETECTED (Not Detect); Candida glab krusei PCR NOT DETECTED (Not Detect); Trichomonas vaginalis PCR NOT DETECTED (Not Detect)
--- OUTSIDE RECORDS SUMMARY | 2024-09-15 11:32 | XMS_ITS | Continuity of Care Document ---
Author Organization [facility] v[facility] Address [address] [place] [address] Phone Care Team Providers Care Cyber Defense Analyst Name Role Phone Unavailable Unavailable Unavailable Advance Directives Directive Yes / No Effective Date File Name No Information Encounters Encounter Description Practice Location Reason(s) For Visit Diagnoses Date Provider Providers Copied on Encounter [facility], [address] [place] [address], [id number], [place] tel:[phone] [facility] Behavioral Health NO SHOW (chief complaint) No [...]
== END 2024-09-11 02:25 | disposition home or self-care (01) ==
PROVIDERS: Emergency Provider Internal Medicine; PCP Nurse Practitioner Family
DX: N39.0 Urinary tract infection, site not specified (principal); N76.0 Acute vaginitis
CPT/HCPCS: 0352U; 36415; 80053; 81001; 81025; 85025; 87086; 99283; 99284

== ENCOUNTER 2024-10-11 10:39 | Outpatient (AMB) | payer MEDICARE, MEDICAID, SELFPAY ==
--- NOTE | 2024-10-11 11:30 | A.OFFPC_ITS ---
Vital Signs 10/11/24 11:38 10/11/24 12:31 Height 5 ft 5 in Weight 209 lb 6 oz BMI 34.8 BP 154/70 H 148/80 H Blood Pressure Location Rt brachial Rt brachial Position Sitting Sitting Respiration 16 Pulse 81 Pulse Source Pulse Oximeter Temp 97.9 F Temp Source Oral Pulse Oximetry (%) 100 Oxygen Delivery Method Room Air Intake Visit Reasons: cold Intake Note: patient here c/o having a cold, sinus issues, drainage for about 3 weeks Paper Folder Required: Yes Paper Folder Language: Director Of Industrial Relations Name: [email or web address] [id number] Is last menstrual period known: Yes Last menstrual period: 06/23/24 Post menopausal: No Patient : No Allergies No Known Allergies Allergy (Verified 10/11/24 12:17) Medication List - Last Reconciled 10/11/24 by Jose Guido CNP cyclobenzaprine 10 mg PO BID PRN hydrocortisone 0.5% 1 appl topical BID PRN 14 days ibuprofen 600 mg PO Q8H PRN melatonin 3 mg PO BEDTIME PRN metronidazole 500 mg PO BID 7 days nitrofurantoin monohyd/m-cryst 100 mg (Macrobid) 100 mg PO Q12H 7 days Tobacco use date assessed: 10/11/24 Dental Screening Dental Screen Date: 10/11/24 Did you have a dental visit in the last 12 months?: Yes Did you have a dental problem in the last 6 months where you did not have access to dental care?: No Was dental information given to patient?: Patient has dentist HPI HPI Comments History of Present Illness Details 49-year-old female presents with complai nts of intermittent productive cough with green, yellow, orange, and little bit of red sputum; chest congestion, sore throat running. Her symptoms have been ongoing for the past 3 weeks. She notes a little bit of chills. No fever, body aches, fatigue, or weakness. She notes positive sick contact from her neighbor. She has been taking mucinex and vicks without relief. She has history of congenital bilateral hearing loss and mutism. She has not gotten fasting lab work done since they were ordered in 01/2024; however, she has been fasting for more than 12 hours and would get lab work done today. [facility] Medical History No pertinent past medical history Surgical History No pertinent past surgical history Social History Housing: Other Housing Other:: [employer] (temporary) Patient Tobacco Use Status: Never used Tobacco e-Cigarette/Vaping Use: Never Used Second Hand Smoke Exposure: No service: No Current occupational status: unemployed Current occupational exposures/hazards: No Cognitive needs: No Hearing needs: Yes Vision needs: No Female Reproductive History Menstrual Date of last menstrual period: 06/23/24 Questionnaire PHQ-9 Over the last 2 weeks, how often have you been bothered by any of the following problems? 1. Little interest or pleasure in doing things: several days 7. Trouble concentrating on things, such as reading the newspaper or watching television: several days Source: Developed by Drs. Garo Ordonez, Jeanie Townsend, Carlos Sandra and colleagues, with an educational pieter from [employer]. Thrive Questionnaire I am a: Patient What is your living situation today?: I have a steady place to live Within the past 12 months, did the food you bought not last and you didn't have the money to get more?: Sometimes True Within the past 12 months, did you worry whether your food would run out before you got money to buy more?: Sometimes True Do you have trouble paying for medicines?: No Do you have trouble getting transportation to medical appointments?: No Do you have trouble paying your heating and electricity bill?: No Do you have trouble taking care of your child, family member or friend?: No Do you have trouble with day-to-day activities such as bathing, preparing meals, shopping, managing finances, etc.?: No Are you currently unemployed and looking for a job?: No Are you interested in more education?: No Please select the resources that you would like help with: None Currently or been in a relationship where the following occur: I choose not to answer THRIVE Score: 2 AUDIT C Alcohol Use Questionnaire (AUDIT-C) 1. How often do you have a drink containing alcohol?: Never Total Score: 0 SANJUANITA-7 AMB Questionnaire SANJUANITA-7 Date SANJUANITA - 7 assessed: 05/10/24 Feeling nervous, anxious, or on edge: 0 = Not at all Not being able to stop or control worryin = Not at all Worrying too much about different things: 0 = Not at all Trouble relaxin = Not at all Being so restless that it is hard to sit still: 0 = Not at all Becoming easily annoyed or irritable: 0 = Not at all Feeling afraid as if something awful might happen: 0 = Not at all Total SANJUANITA-7 score (0-4 normal; 5-9 mild; 10-14 moderate; 15-21 severe): 0 Source: Developed by Drs. Garo Ordonez, Jeanie Townsend, Carlos Sandra and colleagues, with an educational pieter from [employer]. Review of Systems Const Details: Const Denies chills, Denies fatigue, Denies fever(s), Denies headache(s) and Denies weakness ENT Reports as per HPI Card Denies chest pain, Denies lightheadedness, Denies dyspnea and Denies other (Palpitations) Resp Reports cough, Denies dyspnea, Denies wheezing and Denies other ( shortness of breath) GI Denies abdominal pain, Denies melena, Denies hematochezia, Denies change in bowel habits, Denies dyspepsia and Denies nausea Denies hematuria and Denies dysuria Musc Denies abnormal gait, Denies myalgias, Denies arthralgias, Denies numbness and Denies tingling Skin/Breast Denies rash, Denies unusual bruising and Denies wounds Neuro Denies abnormal gait, Denies dizziness, Denies headache(s), Denies memory loss, Denies numbness, Denies Sensory deficit (Neuro), Denies tingling and Denies weakness Psych Denies anxiety, Denies depression, Denies memory loss Endo Denies cold intolerance, Denies fatigue, Denies heat intolerance, Denies polydipsia and Denies polyuria Aller/Immun Denies wheezing Physical exam (Primary Care) Vital Signs: Last Vital Signs Temp 97.9 F 10/11/24 11:38 Pulse 81 10/11/24 11:38 Resp 16 10/11/24 11:38 BP 154/70 H 10/11/24 11:38 Pulse Ox 100 10/11/24 11:38 Oxygen Delivery Method Room Air 10/11/24 11:38 BMI result Body Mass Index 34.8 Tobacco/Smoking Status: Tobacco use Status Tobacco use date assessed 10/11/24 10/11/24 11:41 Patient Tobacco Use Status Never used Tobacco 10/11/24 11:31 e-Cigarette/Vaping Use Never Used 10/11/24 11:31 Currently or been in a relationship where the following occur: I choose not to answer Const Other: General: no acute distress and well developed Nutritional Appearance: well nourished Orientation/consciousness: patient oriented x3 HENMT Head is normocephalic Bilateral ear canal and TM are normal Nasal turbinates and oropharynx are pink and moist Sinuses are nontender with palpation No auricular or cervical lymphadenopathy Eyes General: appearance normal, both eyes and all related structures Pupils: Equal, round and reactive pupils present EOM: EOMs intact bilaterally Resp Effort & Inspection: normal respiratory effort Auscultation: clear to auscultation bilaterally Cardio Rate: regular rate Rhythm: regular rhythm Heart sounds: S1 normal heart sound present, S2 normal heart sound present, no gallops, no murmurs and no rubs GI Palpation (GI): No Abdominal aortic bruit present, Soft to palpation, nontender, No hepatosplenomegaly present and No Rebound tenderness present Auscultation: normal bowel sounds General: Yes no CVA tenderness Back/Spine/Pelvis Back: no CVA tenderness Cervical Spine: cervical ROM normal and No Cervical spine tenderness Thoracic/Lumbar Spine: thoraco-lumbar ROM normal, No pain with thoraco-lumbar ROM, No thoracic spinal tenderness and No lumbar spinal tenderness Extrem General: Yes normal to inspection, No edema and No calf tenderness Skin General: warm and dry. Normal skin color. Normal skin turgor Neuro General: patient oriented x3, gait normal and no focal neuro deficit Cranial nerves: Yes Equal, round and reactive pupils present Cognition (Neuro): normal cognition Gait exam (Neuro): Normal gait present Sensory Exam: No Sensory deficit (Neuro) Psych Appearance: grossly normal Affect: normal affect Attitude: cooperative Thought process: Normal thought process present Coding Level of Care Code Est Pt Level 3 (01583) Diagnoses Viral upper respiratory illness J06.9 Elevated blood pressure reading without diagnosis of hypertension R03.0 Assessment & Plan Assessment & Plan (1) Viral upper respiratory illness: Code(s): J06.9 - Acute upper respiratory infection, unspecified Category: Medical Plan: Likely viral illness though possibly allergies. No exam evidence of bacterial infection Viral illness There is no antibiotic medication for viruses.? They must run their course.? Most average 5-7 days but 7-10 days is not uncommon and up to 14 days is still possible.? A cough is often the last symptom to resolve and this can last for weeks in some cases. Rest Hydrate well -? Drink plenty of fluids.? Especially water. Tylenol or ibuprofen for muscle aches, headache, fever/discomfort Cetirizine as prescribed Cannot rule out COVID-19/RSV/Flu infection Nasal swab acquired and will be sent to the lab Chest x-ray ordered to rule out pneumonia. Encouraged to go to [place] or [facility] as soon as possible for a chest x-ray Return for new or worsening symptoms Verbalized understanding and agreed with treatment plan. (2) Elevated blood pressure reading without diagnosis of hypertension: Code(s): R03.0 - Elevated blood-pressure reading, without diagnosis of hypertension Category: Medical Plan: Resting blood pressure is 148/80, above goal of less than 140/90. Low-sodium diet encouraged. Follow-up in 2 weeks for nurse visit for blood pressure check or sooner with symptoms or concerns. Verbalized understanding and agreed with the plan. Orders: Orders XR chest 2V Today J06.9 - Acute upper respiratory infection, unspecified SARS-CoV2/FLU/RSV Today J06.9 - Acute upper respiratory infection, unspecified Medications: New cetirizine 10 mg PO DAILY 30 days 30 tabs 0RF
[2024-10-11 11:38] VITALS: BP 154/70; PULSE 81; RESP 16; TEMP 36.6; O2SAT 100; BMI 34.8
[2024-10-11 12:31] VITALS: BP 148/80
== END 2024-10-11 12:44 | disposition home or self-care (01) ==
PROVIDERS: PCP Nurse Practitioner Family; Visit Provider Nurse Practitioner Family
DX: J06.9 Acute upper respiratory infection, unspecified (principal); R03.0 Elevated blood-pressure reading, without diagnosis of hypertension

== ENCOUNTER 2024-10-11 10:39 | Outpatient (REF) | payer MEDICARE, SELFPAY ==
--- OUTSIDE RECORDS SUMMARY | 2024-10-11 14:46 | XMS_ITS | Continuity of Care Document ---
Author Organization [facility] vices Address [address] [place] [address] Phone Care Team Providers Care Pulverizer Operator Name Role Phone Unavailable Unavailable Unavailable Advance Directives Directive Yes / No Effective Date File Name No Information Encounters Encounter Description Practice Location Reason(s) For Visit Diagnoses Date Provider Providers Copied on Encounter [facility], [address] [place] [address], [address], [place] tel:[phone] [facility] Behavioral Health NO SHOW (chief complaint) No Information 201 9 No Information Family History Family Member Type Diagnosis Age At Onset No Information Payers Payer name Insurance type Covered libertarian ID Authoriza tion(s) No Information Social History [...]
[2024-10-11 15:29] LABS: Influenza A PCR NEGATIVE (Negative); Influenza B PCR NEGATIVE (Negative); Resp Syncy Virus RNA Qual PCR NEGATIVE (Negative); SARS COV2 PCR INHOUSE NEGATIVE (Negative)
== END 2024-10-11 10:40 | disposition home or self-care (01) ==
LOC: HO.LAB 10:39
PROVIDERS: PCP Nurse Practitioner Family; Visit Provider Nurse Practitioner Family
DX: J06.9 Acute upper respiratory infection, unspecified (principal)
CPT/HCPCS: 0241U; 99212

== ENCOUNTER 2024-10-11 13:01 | Outpatient (REF) | payer MEDICARE, SELFPAY ==
[2024-10-11 14:36] LABS: Appearance Urine Clear; Color Urine Yellow; Glucose Urine UA Negative (Negative); Leukocyte Esterase Urine Moderate (2+) (Negative); Nitrite Urine Negative (Negative); Specific Gravity - Urine 1.015 (1.005-1.025); UMIC TRIGGER UACC YES; Urine Blood Negative (Negative); Urine Ketones Negative (Negative); Urine Protein Negative (Neg-Trace)
[2024-10-11 14:50] LABS: MANUAL DIFF FLAG NO
[2024-10-11 14:53] LABS: Bacteria Urine Trace (None Seen); Hyaline Casts Urine 0-2 /LPF (0-2); UACC Culture Trigger YES
[2024-10-11 14:58] LABS: Basophils Absolute Auto 0.1 X10*3/uL (0.0-0.2); Basophils Percent Auto 0.6 % (0-2); Eosinophils Absolute Auto 0.1 X10*3/uL (0.0-0.4); Eosinophils Percent Auto 1.1 % (0-4); Hematocrit 40.6 % (37.0-47.0); Hemoglobin 12.6 g/dl (12.0-16.0); Imm Gran Abs Auto 0.05 X10*3/uL (0.00-0.03); Imm Gran Pct Auto 0.5 % (0.0-0.4); Lymphocytes Absolute Auto 2.5 X10*3/uL (1.2-4.9); Mean Corpuscular Hemoglobin 27.9 pg (27.0-33.0); Mean Corpuscular Volume 89.8 fL (80.0-98.0); Mean Platelet Volume 11.6 fL (9.4-12.3); Monocytes Absolute Auto 0.7 X10*3/uL (0.1-1.2); Monocytes Percent Auto 6.6 % (2-11); Neutrophils Percent Auto 67.2 % (45-73); Platelet Count 317 X10*3/uL (160-400); Red Blood Count 4.52 X10*6/uL (4.20-5.50); Red Cell Distribution Width 13.8 % (11.0-16.0); White Blood Count 10.3 X10*3/uL (4.8-10.8)
--- OUTSIDE RECORDS SUMMARY | 2024-10-11 15:08 | XMS_ITS | Continuity of Care Document ---
Author Organization [facility] vices Address [address] [place] [address] Phone Care Team Providers Care Laundry Room Attendant Name Role Phone Unavailable Unavailable Unavailable Advance Directives Directive Yes / No Effective Date File Name No Information Encounters Encounter Description Practice Location Reason(s) For Visit Diagnoses Date Provider Providers Copied on Encounter [facility], [address] [place] [address], [address], [place] tel:[phone] [facility] Behavioral Health NO SHOW (chief complaint) [...]
[2024-10-11 15:50] LABS: Alanine Aminotransferase 25 U/L (0-31); Albumin Level 3.9 g/dL (3.5-5.0); Anion Gap 9 (12-20); Aspartate Amino Transferase 21 U/L (5-31); Bilirubin Total 0.2 mg/dL (0.0-1.0); Blood Urea Nitrogen 9 mg/dL (9-16); Calcium 9.2 mg/dL (8.4-10.2); Carbon Dioxide 30 mmol/L (22-29); Chloride 108 mmol/L (96-108); Cholesterol 180 mg/dL (<200); Estimated Glomerular Filt Rate > 60; Glucose Fasting 100 mg/dL (60-99); HDL Cholesterol 45 mg/dL (>40); LDL Cholesterol Calculated 111 mg/dL (<100); Sodium 143 mmol/L (135-145); Total Protein 7.6 g/dL (6.5-8.0); Triglycerides 120 mg/dL (<150)
[2024-10-11 16:23] LABS: Alkaline Phosphatase 88 U/L (39-117); TSH reflex Free T4 1.53 uIU/mL (0.32-4.0)
== END 2024-10-11 13:02 | disposition home or self-care (01) ==
LOC: HO.WFDLDS 13:01
PROVIDERS: Visit Provider Nurse Practitioner Family
DX: Z00.00 Encounter for general adult medical examination without abnormal findings (principal); Z13.6 Encounter for screening for cardiovascular disorders; J06.9 Acute upper respiratory infection, unspecified; R03.0 Elevated blood-pressure reading, without diagnosis of hypertension; R82.90 Unspecified abnormal findings in urine
CPT/HCPCS: 0241U; 36415; 80053; 80061; 81001; 84443; 85025; 87086; 99212

== ENCOUNTER 2024-12-23 11:34 | Outpatient (AMB) | payer MEDICARE, MEDICAID, SELFPAY ==
--- NOTE | 2024-12-23 12:01 | MHC.PC.OV ---
Vital Signs 12/23/24 12:49 Height 5 ft 5 in Weight 209 lb BMI 34.8 BP 115/81 Blood Pressure Location Rt brachial Position Sitting Respiration 16 Pulse 88 Pulse Source Pulse Oximeter Temp 97.7 F Temp Source Oral Pulse Oximetry (%) 100 Oxygen Delivery Method Room Air Intake Visit Reasons: Hand Shoulder and bump in the eye Intake Note: patient here c/o pain and burning in right hand for the past 3 days Mail Distribution Scheme Examiner Required: Yes Mail Distribution Scheme Examiner Language: Sign Languages (macro) Mail Distribution Scheme Examiner Name: dayami [id number] Information Interpreted: non-clinical & clinical Is last menstrual period known: No Post menopausal: No Patient : No Allergies No Known Allergies Allergy (Verified 12/23/24 13:26) Medication List - Last Reconciled 12/23/24 by Jose Guido CNP cetirizine 10 mg PO DAILY 30 days cyclobenzaprine 10 mg PO BID PRN diphenhydramine HCl 25 mg PO BEDTIME PRN ibuprofen 600 mg PO Q8H PRN melatonin 3 mg PO BEDTIME PRN Tobacco use date assessed: 12/23/24 Dental Screening Dental Screen Date: 12/23/24 Did you have a dental visit in the last 12 months?: No Did you have a dental problem in the last 6 months where you did not have access to dental care?: No Was dental information given to patient?: Patient has dentist HPI HPI Comments History of Present Illness Details 49-year-old male presents with complaints of intermittent tingling and burning sensation to the thumb, index, and middle fingers proximal to the palm. The affected fingers are also stiff, which has been intermittent for over a year. Her symptoms started upon waking up and have been ongoing for the past 2-3 days. She took Ibuprofen with minimal improvement. She denies fall, injury, or trauma. She denies constitutional symptoms. Interpretation by professional lining baster, electronically via video. 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 2. Feeling down, depressed, or hopeless: not at all 3. Trouble falling or staying asleep, or sleeping too much: not at all 4. Feeling tired or having little energy: several days 5. Poor appetite or overeating: not at all 6. Feeling bad about yourself - or that you are a failure or have let yourself or your family down: not at all 8. Moving or speaking so slowly that other people could have noticed. Or the opposite - being so fidgety or restless that you have been moving around a lot more than usual: not at all 9. Thoughts that you would be better off or of hurting yourself in some way: not at all Source: Developed by Drs. Garo Ordonez, Jeanie Townsend, Carlos Sandra and colleagues, with an educational pieter from [employer]. Thrive Questionnaire Date Thrive assessed: 10/11/24 I am a: Patient What is your living situation today?: I have a steady place to live Within the past 12 months, did the food you bought not last and you didn't have the money to get more?: Sometimes True Within the past 12 months, did you worry whether your food would run out before you got money to buy more?: Sometimes True Do you have trouble paying for medicines?: No Do you have trouble getting transportation to medical appointments?: No Do you have trouble paying your heating and electricity bill?: No Do you have trouble taking care of your child, family member or friend?: No Do you have trouble with day-to-day activities such as bathing, preparing meals, shopping, managing finances, etc.?: No Are you currently unemployed and looking for a job?: No Are you interested in more education?: No Please select the resources that you would like help with: None Currently or been in a relationship where the following occur: I choose not to answer THRIVE Score: 2 SANJUANITA-7 AMB Questionnaire SANJUANITA-7 Date SANJUANITA - 7 assessed: 05/10/24 Source: Developed by Drs. Garo Ordonez, Jeanie Townsend, Carlos Sandra and colleagues, with an educational pieter from [employer]. Review of Systems Const Details: Const Denies chills, Denies fatigue, Denies fever(s), Denies headache(s) and Denies weakness ENT Denies dizziness and Denies headache(s) Card Denies chest pain, Denies lightheadedness, Denies dyspnea and Denies other (Palpitations) Resp Denies cough, Denies dyspnea, Denies wheezing and Denies other ( shortness of breath) GI Denies abdominal pain, Denies melena, Denies hematochezia, Denies change in bowel habits, Denies dyspepsia and Denies nausea Denies hematuria and Denies dysuria Musc Reports as per HPI Skin/Breast Denies rash, Denies unusual bruising and Denies wounds Neuro Denies abnormal gait, Denies dizziness, Denies headache(s), Denies memory loss, Denies numbness, Denies Sensory deficit (Neuro), Reports tingling and Denies weakness Psych Denies anxiety, Denies depression, Denies memory loss Endo Denies cold intolerance, Denies fatigue, Denies heat intolerance, Denies polydipsia and Denies polyuria Aller/Immun Denies wheezing Physical exam (Primary Care) Vital Signs: Last Vital Signs Temp 97.7 F 12/23/24 12:49 Pulse 88 12/23/24 12:49 Resp 16 12/23/24 12:49 BP 115/81 12/23/24 12:49 Pulse Ox 100 12/23/24 12:49 Oxygen Delivery Method Room Air 12/23/24 12:49 BMI result Body Mass Index 34.8 Tobacco/Smoking Status: Tobacco use Status Tobacco use date assessed 12/23/24 12/23/24 12:52 Patient Tobacco Use Status Never used Tobacco 12/23/24 12:02 e-Cigarette/Vaping Use Never Used 12/23/24 12:02 Thrive Assessment: Date of Thrive Assessment Date Thrive assessed 10/11/24 12/23/24 12:02 Currently or been in a relationship where the following occur: I choose not to answer Const Other: General: no acute distress and well developed Nutritional Appearance: well nourished Orientation/consciousness: patient oriented x3 [facility] Head: Yes normocephalic and Yes atraumatic Eyes General: appearance normal, both eyes and all related structures Pupils: Equal, round and reactive pupils present EOM: EOMs intact bilaterally Resp Effort & Inspection: normal respiratory effort Auscultation: clear to auscultation bilaterally Cardio Rate: regular rate Rhythm: regular rhythm Heart sounds: S1 normal heart sound present, S2 normal heart sound present, no gallops, no murmurs and no rubs GI Palpation (GI): No Abdominal aortic bruit present, Soft to palpation, nontender, No hepatosplenomegaly present and No Rebound tenderness present Auscultation: normal bowel sounds General: Yes no CVA tenderness Back/Spine/Pelvis Back: no CVA tenderness Cervical Spine: cervical ROM normal and No Cervical spine tenderness Thoracic/Lumbar Spine: thoraco-lumbar ROM normal, No pain with thoraco-lumbar ROM, No thoracic spinal tenderness and No lumbar spinal tenderness Extrem General: Yes normal to inspection, No edema and No calf tenderness. Tenderness with palpation to the entire right 1st, 2nd, and 3rd digits. No erythema, edema, or overt signs injury/trauma. Normal ROM and CMS Skin General: warm and dry. Normal skin color. Normal skin turgor Neuro General: patient oriented x3, gait normal and no focal neuro deficit Cranial nerves: Yes Equal, round and reactive pupils present Cognition (Neuro): normal cognition Gait exam (Neuro): Normal gait present Sensory Exam: No Sensory deficit (Neuro) Psych Appearance: grossly normal Affect: normal affect Attitude: cooperative Thought process: Normal thought process present Coding Level of Care Code Est Pt Level 3 (22048) Diagnoses Pain in right finger(s) M79.644 Assessment & Plan Assessment & Plan (1) Pain in right finger(s): Code(s): M79.644 - Pain in right finger(s) Category: Medical Plan: Reports intermittent tingling and burning sensation to the thumb, index, and middle fingers proximal to the palm. The affected fingers are also stiff, which has been intermittent for over a year. Her symptoms started upon waking up and have been ongoing for the past 2-3 days. No fall, injury, or trauma. Tenderness with palpation to the entire right 1st, 2nd, and 3rd digits. No erythema, edema, or overt signs injury/trauma. Normal ROM and CMS. Continue to take ibuprofen as prescribed. Warm/cool compresses and massage encouraged. Will check vitamin B12 and folate level. Will also check uric acid level. Will review results and make changes as needed. Follow-up with worsening or new symptoms. Verbalized understanding and agreed with treatment plan. Orders: Orders Uric Acid Today M79.644 - Pain in right finger(s) Vitamin B12 and Folate Today M79.644 - Pain in right finger(s)
[2024-12-23 12:49] VITALS: BP 115/81; PULSE 88; RESP 16; TEMP 36.5; O2SAT 100; BMI 34.8
--- OUTSIDE RECORDS SUMMARY | 2024-12-23 14:00 | XMS_ITS | Patient Health Record ---
Author Organization [facility] enter Address [address] [place] [address] Care Team Providers Care Liquor Blender Name Role Phone Floriandelmis Sarah Primary Care Provider [phone] Allergies No Known Allergies Reason For Referral No Information Immunizations Vaccine Route Administration Date Status Comme nts COVID-19 Vaccine(Moderna) 1st dose IM Intramuscular 03/20/2021 Administered COVID-19 Vaccine(Moderna) 2nd dose IM Intramuscular 07/17/2021 Administered Fluarix Quadrivalent ID Intradermal 12/12/2020 Administere d Social History Tobacco Use: Social History Observation Description Date Details (start date - stop date) Never Smoker NA - NA Sex Assigned At : Social History Observation Description Sex Assigned At Female * Tobacco Use/Smoking assessment Question Answer Notes Are you a nonsmoker Alcohol Screen (Audit-C) Question Answer Notes Did you have a drink containing alcohol in the p ast year? No Points 0 Interpretation Negative Sexual History Question Answer Notes Last menstrual period 04/22/2019 DAST - Drug and Alcohol Question Answer Notes Total Score: 0 Interpretation: No problems reported Problems Problem Type SNOMED Code ICD Code Onset Dates Problem Status W/U Status Risk Notes Problem 28758780 Presbyopia (H52.4) Active confirmed Problem 70285538 Anxiety (F41.9) Active confirmed Problem 618327295 Dry eye (H04.129) Active confirmed Plan Of Treatment No Information Insurance Providers Payer Name Payer Address Payer Phone Subscriber Number Group Number Insured Name Patient Relationship to Insured Coverage Start Date Coverage End Date [employer] Plans [address] [place] [address] [id number] Jan Darling Self - patient is the insured [facility] [address] [place], [place] [id number] [phone] [id number] Jan Darling Self - patient is the insured Medical (General) History Surgical History Surgery Date(Month/Year)
--- OUTSIDE RECORDS SUMMARY | 2024-12-23 14:00 | XMS_ITS | Continuity of Care Document ---
Author Organization [facility] vices Address [address] [place] [address] Phone Care Team Providers Care Inspector Plating Name Role Phone Unavailable Unavailable Unavailable Advance Directives Directive Yes / No Effective Date File Name No Information Encounters Encounter Description Practice Location Reason(s) For Visit Diagnoses Date Provider Providers Copied on Encounter [facility], [address] [place] [address], [address], [place] tel:[phone] [facility] Behavioral Health NO [...]
--- OUTSIDE RECORDS SUMMARY | 2024-12-23 14:00 | XMS_ITS | Clinical Summary ---
Author Organization [employer] Address [address] [facility] [address] [place] [address] Care Team Providers Care Identity Access Management Architect Name Role Phone Unavailable Primary Care Provider Unavailabl e Immunizations Name Administration Dates Next Due Moderna Covid-19 Vaccine 12+ 07/17/2021,03/20/20 21 Moderna Covid-19 Vaccine 6+ Bivalent 09/23/2022 Social History Tobacco Use Types Packs/Day Years Used Date Smoking Tobacco: Never Assessed Comments Unknown Sex and Gender Information Value Date Recorded Sex Assigned at Female 09/23/2022 12:01 PM EST Legal Sex Female 6:34 PM EST Gender Identity Female 09/23/2022 12:01 PM EST Sexual Orientation Not on file Plan of Treatment Health Maintenance Due Date Last Done Comments CT Colonography 1975 Colonoscopy 1975 Colorectal Cancer Screening 1975 Depression Screening 1975 FIT DNA/Cologuard 1975 FIT 1975 FOBT 1975 HIV Screening 1975 SDOH Screening 1975 Sigmoidoscopy 1975 Alcohol/Substance Use Screening 1987 Tobacco Screening 1987 Family Planning (PISQ) 1990 Hepatitis C Screening 1993 DTaP/Tdap/Td Vaccines (1 - Tdap) 1994 Hepatitis B Vaccines (1 of 3 - 19+ 3-dose series) 1994 Pap Smear 1996 Cervical Cancer Screening 2005 HPV/Cotest 2005 Mammogram 2015 COVID-19 Vaccine (2023-2 5 season) 2024 09/23/2022, 07/17/2021, 03/20/2021 Influenza Vaccine (#1) 2024 Zoster Vaccines (1 of 2) 2025 RSV Patients and Patients Aged 60 years or older (1 - 1-dose 75+ series) 2050 HIB Vaccines Aged Out No longer eligi ble based on patient's age to complete this topic HPV Vaccines Aged Out No longer eligi ble based on patient's age to complete this topic Hepatitis A Vaccines Aged Out No long er eligible based on patient's age to complete this topic IPV Vaccines Aged Out No longer eligi ble based on patient's age to complete this topic Meningococcal Vaccine Aged Out No rashad chayo eligible based on patient's age to complete this topic Pneumococcal Vaccine: Pediatrics (0 to 5 Years) and At-Risk Patients (6 to 49) Years) Aged Out No longer eligible b ased on patient's age to complete this topic RSV under 20 months Aged Out No longe r eligible based on patient's age to complete this topic Rotavirus Vaccines Aged Out No longer eligible based on patient's age to complete this topic Insurance [place] [address] [place] [phone]
== END 2024-12-23 13:45 | disposition home or self-care (01) ==
LOC: HO.HMCFM 11:35
PROVIDERS: PCP Nurse Practitioner Family; Visit Provider Nurse Practitioner Family
DX: M79.644 Pain in right finger(s) (principal)

== ENCOUNTER → 2024-12-23 11:34 | Outpatient (BNVA) | payer MEDICARE, MEDICAID, SELFPAY | PROVIDERS: PCP Nurse Practitioner Family; Visit Provider Nurse Practitioner Family ==

== ENCOUNTER 2024-12-23 13:38 | Outpatient (REF) | payer MEDICARE, MEDICAID, SELFPAY ==
[2024-12-23 18:37] LABS: Uric Acid 5.8 mg/dL (2.4-5.7)
[2024-12-23 19:13] LABS: Folate 14.8 ng/mL (> or = 4.0); Vitamin B12 649 pg/mL (200-900)
== END 2024-12-23 13:39 | disposition home or self-care (01) ==
LOC: HO.WFDLDS 13:38
PROVIDERS: Visit Provider Nurse Practitioner Family
DX: M79.644 Pain in right finger(s) (principal); R20.2 Paresthesia of skin
CPT/HCPCS: 36415; 82607; 82746; 84550; 99212

== ENCOUNTER 2025-03-22 12:47 | Outpatient (AMB) | payer MEDICARE, MEDICAID, SELFPAY ==
--- NOTE | 2025-03-22 13:05 | MHC.OFFVIS ---
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 Doing well with concerns: History of BV treated last September, currently feels increased discharge and has slight odor. Menses have spaced to several year. First pelvic exam. Is not sexually active. STI screening offered; she declines. She tries to eat healthy and stays active with exercise. Denies family history of breast, ovarian or colon cancer. Mammogram: not up to date. Pt. 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) Alcohol intake: current Alcohol intake frequency: holidays/special occasions only Patient Tobacco Use Status: Never used Tobacco e-Cigarette/Vaping Use: Never Used Second Hand Smoke Exposure: No service: No Current occupational status: unemployed Current occupational exposures/hazards: No Cognitive needs: No Hearing needs: Yes Vision needs: No Female Reproductive History Menstrual Total pregnancies: 0 Review of Systems Const All systems reviewed & are unremarkable except as noted in HPI and below Reports as per HPI Eyes Reports no additional complaints ENT Reports no additional complaints Card Reports no additional complaints Resp Reports no additional complaints GI Reports as per HPI and Reports no additional complaints Reports as per HPI Musc Reports no additional complaints Skin/Breast Reports as per HPI Neuro Reports no additional complaints Psych Reports no additional complaints Endo Reports no additional complaints Sterling/Lymph Reports no additional complaints Aller/Immun Reports no additional complaints Physical Exam Vital Signs: BMI result Body Mass Index 34.4 Const General: cooperative, healthy appearing, no acute distress, well developed and alert Orientation/consciousness: patient oriented x3 HEENT Head: Yes normal to inspection Eyes General: appearance normal, both eyes and all related structures Neck Neck: Yes normal visual inspection Thyroid: Thyroid normal Chest Chest palpation & inspection: normal inspection of the chest (superficial comedone type lesion right breast 11-12:00) and other (no puckering, dimpling, peau de orange, retraction, discharge, masses) Breast/axilla inspection: normal inspection of the breasts Breast/axilla palpation: normal palpation of the breasts Resp Effort & Inspection: normal respiratory effort GI Inspection: Yes normal to inspection Palpation (GI): Soft to palpation Rectal Exam - Female: deferred General: Yes bladder normal to palpation External Female Exam: normal external appearance and normal appearance of the urethra Speculum Exam - Vagina: normal appearance of the vagina, normal palpation and normal vaginal discharge Speculum Exam - Cervix: normal appearance of the cervix, normal palpation, Cervical mass present (Appears as a polyp, friable) pedunculated and Other cervical findings present (Bled readily with Pap ) Bimanual exam- vagina & uterus: normal bimanual exam, normal palpation, uterine size normal, bladder normal to palpation, normal palpation, non-tender and other (Uterus and cervix rotated to the left) Bimanual Exam- Adnexa, other: no masses Skin General skin exam: no rashes or lesions noted Rashes: no rashes Neuro General: patient oriented x3 Cognition (Neuro): normal cognition Extrem General: Yes normal to inspection Psych Attitude: cooperative Thought process: Normal thought process present Assessment & Plan Assessment & Plan (1) Vaginal odor: Code(s): N89.8 - Other specified noninflammatory disorders of vagina Category: Medical Plan: BV panel obtained await results for plan of care. Discuss vaginal samm and gut biome, recommended probiotics. The patient expressed understanding and agreement with the plan of care. All of her questions and concerns were addressed to the best of my ability. (2) Encounter for well woman exam with routine gynecological exam: Code(s): Z01.419 - Encounter for gynecological examination (general) (routine) without abnormal findings Category: Medical Plan: Discussed: Current recommendations for pap smears per ASCCP guidelines. Breast awareness and periodic breast exams. Mammogram yearly. Order in been placed, strongly advised to complete. Maintain a healthy lifestyle including a well balanced diet and routine exercise. Patient verbalizes understanding and agrees to the plan of care. She was given opportunity to ask questions and all questions were answered to the best of my ability. 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 This note is constructed using voice recognition software. While every effort has been made to ensure accuracy, national account director errors may have been included. (3) Polyp at cervical os: Code(s): N84.1 - Polyp of cervix uteri Category: Medical Plan Discussed: Cervical polyp findings, anatomical positioning. Recommended removal due to small risk of atypical changes with polyps. Plan pelvic ultrasound follow up for polypectomy with test results. The patient expressed understanding and agreement with the plan of care. All of her questions and concerns were addressed to the best of my ability. This note is constructed using voice recognition software. While every effort has been made to ensure accuracy, national account director errors may have been included. Orders: Orders HPV High risk Today Z01.419 - Encounter for gynecological examination (general) (routine) without abnormal findings Pap Smear Today Z01.419 - Encounter for gynecological examination (general) (routine) without abnormal findings Bacterial Vaginosis Panel Today N89.8 - Other specified noninflammatory disorders of vagina Coding Level of Care Code New Pt Prev Care 40-64y(22395) Diagnoses Vaginal odor N89.8 Encounter for well woman exam with routine gynecological exam Z01.419 Polyp at cervical os N84.1
[2025-03-22 13:06] VITALS: BP 130/80; BMI 34.4
--- OUTSIDE RECORDS SUMMARY | 2025-03-22 14:29 | XMS_ITS | Patient Health Record ---
Author Organization [facility] Address [address] [place] [address] Care Team Providers Care Flat Folder Name Role Phone Floriandelmis Sarah Primary Care Provider [phone] Allergies No Known Allergies Reason For Referral [...] Problem Status W/U Status Risk Notes Problem [id number] Presbyopia (H52.4) Active confirmed Problem [id number] Anxiety (F41.9) Active confirmed Problem [id number] Dry eye (H04.129) Active confirmed Plan Of Treatment No Information Insurance Providers Payer Name Payer Address Payer Phone Subscriber Number Group Number Insured Name Patient Relationship to Insured Coverage Start Date Coverage End Date [employer] Medicare Plans [address] [place] [address] [id number] Jan Darling Self - patient is the insured [facility] [address] [place], [place] [id number] Jan Darling Self - patient is the insured Medical (General) History Surgical History Surgery Date(Month/Year)
== END 2025-03-22 14:07 | disposition home or self-care (01) ==
LOC: HO.HWS 12:47
PROVIDERS: PCP Nurse Practitioner Family; Visit Provider Advanced Practice Midwife
DX: N89.8 Other specified noninflammatory disorders of vagina (principal); N84.1 Polyp of cervix uteri; Z01.419 Encounter for gynecological examination (general) (routine) without abnormal findings
CPT/HCPCS: 99213; G0101; Q0091

== ENCOUNTER 2025-03-22 12:47 | Outpatient (REF) | payer MEDICARE, MEDICAID, SELFPAY ==
[2025-03-28 09:49] LABS: HPV Genotype 16 Negative (Negative); HPV Genotype 18 Negative (Negative); HPV High Risk Negative (Negative)
== END 2025-03-22 12:48 | disposition home or self-care (01) ==
LOC: HO.LNP 12:47
PROVIDERS: PCP Nurse Practitioner Family; Visit Provider Advanced Practice Midwife
DX: Z01.419 Encounter for gynecological examination (general) (routine) without abnormal findings (principal); N89.8 Other specified noninflammatory disorders of vagina; N84.1 Polyp of cervix uteri
CPT/HCPCS: 87626; 88175; 99212; G0101; Q0091

== ENCOUNTER 2025-03-22 13:43 | Outpatient (REF) | payer MEDICARE, MEDICAID, SELFPAY ==
[2025-03-22 16:25] LABS: Bacterial Vaginosis PCR NEGATIVE (Negative); Candida Group PCR NOT DETECTED (Not Detect); Candida glab krusei PCR NOT DETECTED (Not Detect); Trichomonas vaginalis PCR NOT DETECTED (Not Detect)
== END 2025-03-22 13:44 | disposition home or self-care (01) ==
LOC: HO.LAB 13:43
PROVIDERS: Visit Provider Advanced Practice Midwife
DX: Z01.419 Encounter for gynecological examination (general) (routine) without abnormal findings (principal); N89.8 Other specified noninflammatory disorders of vagina
CPT/HCPCS: 81515

== ENCOUNTER 2025-03-30 13:44 | Outpatient (REF) | payer MEDICARE, MEDICAID, SELFPAY ==
--- NOTE | ~2025-03-30 | US_ITS ---
CLINICAL HISTORY: N84.1 - Polyp of cervix uteri,MALPOSITION OF UTERUS Transabdominal and transvaginal pelvic ultrasound Comparison: None Findings: Uterus 7.3 x 3.0 x 3.6 cm. Endometrium 8 mm. Heterogeneous fluid noted in cervical endometrium. 5 x 6 mm echogenic structure noted within this. Question polyp versus products of hemorrhage. No significant free fluid in cul-de-sac. Right ovary 1.8 x 1.5 x 1.1 cm. Left ovary 2.4 x 1.5 x 1.4 cm. No significant focal abnormality. Impression: Heterogeneous fluid and echogenic material in cervical endometrium Question small polyp versus products of hemorrhage This document has been electronically signed by: Narayan Torres MD on 03/30/2025 22:17:50
--- OUTSIDE RECORDS SUMMARY | 2025-03-30 16:17 | XMS_ITS | Patient Health Record ---
Author Organization [facility] enter Address [address] [place] [address] Care Team Providers Care Tug Captain Name Role Phone Floriandelmis Sarah Primary Care Provider [phone] Allergies No Known Allergies Reason For Referral No Information Immunizations Vaccine Route Administration Date Status Comme nts Fluarix Quadrivalent ID Intradermal 12/12/2020 Administere d COVID-19 Vaccine(Moderna) 2nd dose IM Intramuscular 07/17/2021 Administered COVID-19 Vaccine(Moderna) 1st dose IM Intramuscular 03/20/2021 Administered Social History Tobacco Use: Social History Observation [...] Problem Status W/U Status Risk Notes Problem [id number] Presbyopia (H52.4) Active confirmed Problem 39148287 Anxiety (F41.9) Active confirmed Problem 203146713 Dry eye (H04.129) Active confirmed Plan Of Treatment No Information Insurance Providers Payer Name Payer Address Payer Phone Subscriber Number Group Number Insured Name Patient Relationship to Insured Coverage Start Date Coverage End Date [employer] Medicare Plans [address] [place] [address] [id number] Jan Darling Self - patient is the insured [facility] [address] [place], [place] [id number] Jan Darling Self - patient is the insured Medical (General) History Surgical History Surgery Date(Month/Year)
== END 2025-03-30 13:45 | disposition home or self-care (01) ==
LOC: HO.US 13:44
PROVIDERS: PCP Nurse Practitioner Family; Visit Provider Advanced Practice Midwife
DX: N84.1 Polyp of cervix uteri (principal); N85.4 Malposition of uterus
CPT/HCPCS: 76830; 76856

== ENCOUNTER → 2025-03-30 13:47 | Outpatient (BNV) | payer MEDICARE, MEDICAID, SELFPAY | PROVIDERS: PCP Nurse Practitioner Family; Visit Provider Radiology Diagnostic Radiology | DX: N85.8 Other specified noninflammatory disorders of uterus (principal) | CPT/HCPCS: 76830; 76856 ==

== ENCOUNTER 2025-05-11 13:47 | Outpatient (REF) | payer MEDICARE, MEDICAID, SELFPAY | END 2025-05-11 13:48 | disposition home or self-care (01) | LOC: HO.LNP 13:47 | PROVIDERS: PCP Nurse Practitioner Family; Visit Provider Advanced Practice Midwife | DX: N84.1 Polyp of cervix uteri (principal); R93.89 Abnormal findings on diagnostic imaging of other specified body structures | CPT/HCPCS: 57500; 88305 ==

== ENCOUNTER 2025-05-11 13:47 | Outpatient (AMB) | payer MEDICARE, MEDICAID, SELFPAY ==
[2025-05-11 13:53] VITALS: BMI 34.8
--- NOTE | 2025-05-11 13:53 | A.OFFVIS_ITS ---
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 Intake Note: c/o vaginal irritation with brownish discharge Turpentiner Required: Yes Turpentiner Services: Turpentiner Present (asl) Turpentiner Name: machine Information Interpreted: non-clinical & clinical Campus Recruiter: Campus Recruiter Present (baltazar) Accompanied by: Self / Same As Patient Allergies No Known Allergies Allergy (Verified 05/11/25 13:55) Medication List - Last Reconciled 05/11/25 by Keeley Yao LPN amoxicillin 500 mg PO Q8H 7 days cetirizine 10 mg PO DAILY 30 days fluconazole 150 mg PO Q3D ibuprofen 600 mg PO Q8H PRN ketoconazole 2% 1 appl topical BID melatonin 3 mg PO BEDTIME PRN Is last menstrual period known: Yes Last menstrual period: 04/13/25 Post menopausal: No Patient : No Do you need a note to return to daycare/school/sports/work: No HPI Comments Details: Patient is here today for a follow up on her pelvic ultrasound. History of cervical polyp. She reports some labial irritation at times and some brown discharge. LMP July 2024 and April 2025. She is not sexually active. 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) Alcohol intake: current Alcohol intake frequency: holidays/special occasions only Patient Tobacco Use Status: Never used Tobacco e-Cigarette/Vaping Use: Never Used Second Hand Smoke Exposure: No service: No Current occupational status: unemployed Current occupational exposures/hazards: No Cognitive needs: No Hearing needs: Yes Vision needs: No Female Reproductive History Menstrual Age of Menarche: 10 Date of last menstrual period: 04/13/25 control method: abstinence Total pregnancies: 0 Number of Living Children: 0 Date of last pap smear: 03/22/25 History of abnormal pap smear: No History of STI: No Review of Systems Const All systems reviewed & are unremarkable except as noted in HPI and below Physical Exam Vital Signs: BMI result Body Mass Index 34.8 Const General: cooperative, healthy appearing and no acute distress Orientation/consciousness: patient oriented x3 GI Inspection: Yes normal to inspection Palpation (GI): Soft to palpation and Other GI palpation findings present (Nontender) Rectal Exam - Female: visual inspection normal General: Yes bladder normal to palpation External Female Exam: normal appearance of the urethra Speculum Exam - Vagina: normal appearance of the vagina, normal palpation and normal vaginal discharge Speculum Exam - Cervix: normal appearance of the cervix, normal palpation and Cervical mass present (Polyp ) pedunculated Bimanual exam- vagina & uterus: normal bimanual exam, normal palpation, uterine size normal, bladder normal to palpation, normal palpation, uterine shape normal and non-tender Bimanual Exam- Adnexa, other: normal adnexae Neuro General: patient oriented x3 Office Procedures Cervical Polypectomy Details Details: Consent for Cervical Polypectomy procedure: The patient is here today for an Cervical Polypectomy. She was counseled regarding anticipatory guidance for the procedure including the risks for pain, infection, bleeding, perforation, potential injury to the tissues may include the cervix, vagina, uterus, tubes, bladder and bowels. These injuries may include further treatment and evaluation including surgery, blood transfusions, antibiotics, hospitalizations and anesthesia. Permanent injury and scarring can occur. She was consented for the procedure, and the consent forms were signed. She is agreeable to have the procedure today. All questions were answered. Polypectomy Procedure: The patient was placed in the dorsal lithotomy position and a sterile speculum inserted. Using aseptic technique for the procedure. The cervix was cleansed with Betadine x 3 swabs. The polyp was grasped with a Boseman and removed. The tissue sample was placed in formalin in a patient labeled container by staff assisting and sent to the pathology department for processing and interpretation. Monsel's was applied for hemostasis. Minimal bleeding was observed. The patient tolerate the procedure well and was in good condition when leaving the department. Post Polypectomy Care: There may be some bleeding for several days that is usually light and can turn to a light brown or pink in color. Mild cramping may occur. Nothing in the vagina including: tampons, douching or intimacy for a week. You may take an over the counter mild analgesia like Tylenol or Advil (if no allergies), per the manufacturers recommendations on dosing and frequency. Follow the directions completely. Call the office if any: fever (over 100.4), flu like symptoms, abdominal pain, worsening cramping not resolved with over the counter medications, foul smelling vaginal odor, signs of infected appearing discharge, or heavy bleeding. A follow up for results on the pathology will be made. Please call the office if you have any concerns. This note is constructed using voice recognition software. While every effort has been made to ensure accuracy, brand recorder errors may have been included. CPT: 90787 - Cervical Polypectomy All charges added?: Procedure code (CPT) selection complete Results Reviewed Results Reviewed: [address] [address] Ultrasound Report Signed Patient: Jan Darling MR#: [id number] : 1975 Acct:[id number] Age/Sex: 49 / F ADM Date: 03/30/25 Loc: .US Attending Dr: Beatrice Morales CNM Ordering Physician: Beatrice Morales CNM Date of Service: 03/30/25 Procedure(s): US pelvic and transvaginal Accession Number(s): [id number] cc: Beatrice Morales CNM; Jose Guido [facility] CLINICAL HISTORY: N84.1 - Polyp of cervix uteri,MALPOSITION OF UTERUS Transabdominal and transvaginal pelvic ultrasound Comparison: None Findings: Uterus 7.3 x 3.0 x 3.6 cm. Endometrium 8 mm. Heterogeneous fluid noted in cervical endometrium. 5 x 6 mm echogenic structure noted within this. Question polyp versus products of hemorrhage. No significant free fluid in cul-de-sac. Right ovary 1.8 x 1.5 x 1.1 cm. Left ovary 2.4 x 1.5 x 1.4 cm. No significant focal abnormality. Impression: Heterogeneous fluid and echogenic material in cervical endometrium Question small polyp versus products of hemorrhage This document has been electronically signed by: Narayan Torres MD on 03/30/2025 22:17:50 Dictated By: Narayan Torres MD Signed By: <Electronically signed by Narayan Torres MD in OV> 03/30/25 4150 DD/ 16 TD/TT: 03/30/252216 Wet Pan Operator: Assessment & Plan Assessment & Plan (1) Ultrasound scan abnormal: Code(s): R93.89 - Abnormal findings on diagnostic imaging of other specified body structures Plan: Discussed ultrasound findings: Impression: Heterogeneous fluid and echogenic material in cervical endometrium Question small polyp versus products of hemorrhage Advised to repeat ultrasound procedure when she is not bleeding, if she starts bleeding prior to appointment to reschedule until bleeding has subsided. The patient expressed understanding and agreement with the plan of care. All of her questions and concerns were addressed to the best of my ability. (2) Cervical polyp: Code(s): N84.1 - Polyp of cervix uteri Plan Patient preferred not to wait for polypectomy (due to increased stress/worry) for removal after the follow up ultrasound, and request to be removed today. Polyp removal completed. This may be the structure seen in the ultrasound, await next scan for final evaluation. See procedure notes. Orders: Orders US pelvic and transvaginal Today R93.89 - Abnormal findings on diagnostic imaging of other specified body structures Surgical Today N84.1 - Polyp of cervix uteri Coding Level of Care Code Procedure Only Diagnoses Ultrasound scan abnormal R93.89 Cervical polyp N84.1 CPT Codes Details - CPT: 51660 - Cervical Polypectomy ([id number])
--- OUTSIDE RECORDS SUMMARY | 2025-05-11 14:15 | XMS_ITS | Clinical Summary ---
Author Organization [employer] Address [address] [place] [address] [address] [place] [address] Care Team Providers Care Odd Job Laborer Name Role Phone Unavailable Primary Care Provider Unavailabl e Immunizations Immunization Administration Dates Next Due Moderna Covid-19 Vaccine [...] Screening 1975 SDOH Screening 1975 Sigmoidoscopy 1975 Disability Screening 1975 Alcohol/Substance Use Screening 1987 Tobacco Screening 1987 Family Planning (PISQ) 1990 Hepatitis C Screening 1993 DTaP/Tdap/Td Vaccines (1 - Tdap) 1994 Hepatitis B Vaccines (1 of 3 - 19+ 3-dose series) 1994 Pap Smear 1996 Cervical Cancer Screening 2005 HPV/Cotest 2005 Mammogram 2015 COVID-19 Vaccine (2023-2 5 season) 2024 09/23/2022, 07/17/2021, 03/20/2021 Influenza Vaccine (#1) 2025 Zoster Vaccines (1 of 2) 2025 RSV [...] patient's age to complete this topic Meningococcal B Vaccine Aged Out No l onger eligible based on patient's age to complete this topic Meningococcal Vaccine Aged Out No rashad chayo eligible based on patient's age to complete this topic Pneumococcal Vaccine: Pediatrics (0 to 5 Years) and At-Risk Patients (6 to 49) Years Aged Out No longer eligible b ased on patient's age to complete this topic RSV under 20 months Aged Out No longe r eligible based on patient's age to complete this topic Rotavirus Vaccines Aged Out No longer eligible based on patient's age to complete this topic Insurance MEDICARE * Guarantor: Jan Darling Account Type Relation to Patient Date of Phone Billing Address Personal/Family Self [phone] ([address] [address]
--- OUTSIDE RECORDS SUMMARY | 2025-05-11 14:15 | XMS_ITS | Patient Health Record ---
Author Organization [facility] enter Address [address] [place] [address] Care Team Providers Care Sheet Metal Journeyman Name Role Phone Dianablake Sarah Primary Care Provider Allergies No Known Allergies Reason For Referral [...] Problem Status W/U Status Risk Notes Problem Presbyopia (08065266) Presbyopia (H52.4) Active confirmed Problem Anxiety (03493195) Anxiety (F41.9) Active confirmed Problem Tear film insufficiency (33244660) Dry eye (H04.129) Active confirmed Plan Of Treatment No Information Insurance Providers Payer Name Payer Address Payer Phone Subscriber Number Group Number Insured Name Patient Relationship to Insured Coverage Start Date Coverage End Date [employer] Medicare Plans [address] [place] [address] [id number] Jan Darling Self - patient is the insured [employer] [address] [place], [place] [id number] Jan Darling Self - patient is the insured Medical (General) History Surgical History Surgery Date(Month/Year)
== END 2025-05-11 15:00 | disposition home or self-care (01) ==
LOC: HO.HWS 13:47
PROVIDERS: PCP Nurse Practitioner Family; Visit Provider Advanced Practice Midwife
DX: N84.1 Polyp of cervix uteri (principal); R93.89 Abnormal findings on diagnostic imaging of other specified body structures
CPT/HCPCS: 57500

== ENCOUNTER 2025-05-23 12:50 | Outpatient (REF) | payer MEDICARE, MEDICAID, SELFPAY ==
--- OUTSIDE RECORDS SUMMARY | 2019-01-06 08:30 | XMS_ITS | Continuity of Care Document ---
Author Organization On License Of [facility] vices Address [address] [place] [address] Phone Care Team Providers Care Machine Repairman Name Role Phone Unavailable Unavailable Unavailable Advance Directives Directive Yes / No Effective Date File Name No Information Encounters Encounter Description Practice Location Reason(s) For Visit Diagnoses Date Provider Providers Copied on Encounter [facility], [address] [place] [address], [id number], [place] tel:[phone] [facility] Behavioral Health NO SHOW (chief complaint) No Information 201 9 No Information Family History Family Member Type Diagnosis Age At Onset No Information Payers Payer name Insurance type Covered democrat ID Authoriza tion(s) No Information Social History Type Description Quantity Date Captured Comments Sex Female Smoking Status No Information Sexual Orientation Don't Know Gender Identity Additional gender ca tegory or other, please specify Chief Complaint And Reason For Visit From encounter dated '01/06/2019 12:30'. NO SHOW (chief complaint). Description: Client did not show for BH Consult. Reason For Referral Reason For Referral No Information History Of Present Illness Encounter Date Complaint History Of Prese nt Illness NO SHOW Client did not s how for BH Consult. Functional Status Date Functional Assessmen t No Information Instructions Date Instruction Additional Infor mation No Information Assessments Type Assessment Date No Information Patient Care Teams Name Effective Dates (start - stop) Status Members No Information
--- NOTE | ~2025-05-23 | US_ITS ---
CLINICAL HISTORY: R93.89 - Abnormal findings on diagnostic imaging of other specified body... Transabdominal and transvaginal pelvic ultrasound Bilateral ovarian Doppler studies Comparison: None Findings: Uterus 7.1 x 3.1 x 3.4 cm. Endometrium 5 mm. Simple and complex nabothian cysts noted. No significant abnormality identified. No significant free fluid. Right ovary 1.9 x 1.6 x 1.5 cm. Left ovary 2.3 x 1.1 x 1.9 cm. No significant focal abnormality. Impression: No significant abnormality This document has been electronically signed by: Narayan Torres MD on 05/25/2025 00:03:19
--- OUTSIDE RECORDS SUMMARY | 2025-05-23 13:42 | XMS_ITS | Patient Health Record ---
Author Organization [facility] enter Address [address] [place] [address] Care Team Providers Care Government Minister Name Role Phone Floriandelmis Sarah Primary Care Provider [phone] Allergies No Known Allergies Reason For Referral [...] Status W/U Status Risk Notes Problem Presbyopia (11973994) Presbyopia (H52.4) Active confirmed Problem Anxiety (93626634) Anxiety (F41.9) Active confirmed Problem Tear film insufficiency (25904008) Dry eye (H04.129) Active confirmed Plan Of Treatment No Information Insurance Providers Payer Name Payer Address Payer Phone Subscriber Number Group Number Insured Name Patient Relationship to Insured Coverage Start Date Coverage End Date [employer] Medicare Plans [address] [place] [address] [id number] Jan Darling Self - patient is the insured [id number] Babcock [address] [place], [place] [phone] [id number] Jan Darling Self - patient is the insured Medical (General) History Surgical History Surgery Date(Month/Year)
--- OUTSIDE RECORDS SUMMARY | 2025-05-23 13:42 | XMS_ITS | Clinical Summary ---
Author Organization [employer] Address [address] [place] [address] [address] [place] [address] Care Team Providers Care Bowling Alley Operator Name Role Phone Unavailable Primary Care Provider [...] Date of Phone Billing Address Personal/Family Self [phone] ([address] [address]
== END 2025-05-23 12:51 | disposition home or self-care (01) ==
LOC: HO.US 12:50
PROVIDERS: PCP Nurse Practitioner Family; Visit Provider Advanced Practice Midwife
DX: R93.89 Abnormal findings on diagnostic imaging of other specified body structures (principal)
CPT/HCPCS: 76830; 76856

== ENCOUNTER → 2025-05-23 13:00 | Outpatient (BNV) | payer MEDICARE, MEDICAID, SELFPAY | PROVIDERS: PCP Nurse Practitioner Family; Visit Provider Radiology Diagnostic Radiology | DX: R93.89 Abnormal findings on diagnostic imaging of other specified body structures (principal) | CPT/HCPCS: 76830; 76856 ==

== ENCOUNTER 2025-05-25 14:47 | Outpatient (AMB) | payer MEDICARE, MEDICAID, SELFPAY ==
[2025-05-25 14:50] VITALS: BP 126/76
--- NOTE | 2025-05-25 14:50 | MHC.OFFVIS ---
Vital Signs 05/25/25 14:50 Height 5 ft 5 in BP 126/76 Intake Visit Reasons: bx follow up Outreach Specialist Required: Yes Outreach Specialist Language: Spinning And Winding Supervisor Name: Mei [phone] Information Interpreted: non-clinical & clinical Allergies No Known Allergies Allergy (Verified 05/25/25 14:53) HPI Comments Details: Patient is here today for a follow up ultrasound results, history of recent cervical polypectomy. Menses spacing for the last couple years. She has no concerns today. PFSH Medical History Vaginal odor Polyp at cervical os No pertinent past medical history Surgical History No pertinent past surgical history Social History Housing: Other Housing Other:: [employer] (temporary) Alcohol intake: current Alcohol intake frequency: holidays/special occasions only Patient Tobacco Use Status: Never used Tobacco e-Cigarette/Vaping Use: Never Used Second Hand Smoke Exposure: No service: No Current occupational status: unemployed Current occupational exposures/hazards: No Cognitive needs: No Hearing needs: Yes Vision needs: No Female Reproductive History Menstrual Age of Menarche: 10 Review of Systems Const All systems reviewed & are unremarkable except as noted in HPI and below Physical Exam Vital Signs: Last Vital Signs BP 126/76 05/25/25 14:50 Const General: cooperative, healthy appearing and no acute distress Orientation/consciousness: patient oriented x3 GI Inspection: Yes normal to inspection Palpation (GI): Soft to palpation and Other GI palpation findings present (Nontender) Rectal Exam - Female: visual inspection normal General: Yes bladder normal to palpation External Female Exam: normal appearance of the urethra Speculum Exam - Vagina: normal appearance of the vagina, normal palpation and normal vaginal discharge Speculum Exam - Cervix: normal appearance of the cervix and normal palpation Bimanual exam- vagina & uterus: normal bimanual exam, normal palpation, uterine size normal, bladder normal to palpation, normal palpation, uterine shape normal and non-tender Bimanual Exam- Adnexa, other: normal adnexae Neuro General: patient oriented x3 Results Reviewed Results Reviewed: Surgical Pathology [id number] Name: Jan Darling Age/Sex: 49/F Attending: Beatrice Morales CNM : 1975 Submitted by: Beatrice Morales CNM Copies to: Jose Guido CNP MR #: [id number] Status: DEP REF Collected: 05/11/25 Location: [facility] Received: 05/12/25 Diagnosis A. Endocervical polyp, resection: Benign endocervical polyp; negative for dysplasia. B. Cervical polyp, resection: Benign endocervical/endometrial polyp; no atypia or carcinoma. Clinical History Vaginal bleeding, 03/30/25 ultrasound, polyp at cervical os Microscopic Description Microscopic sections reviewed. Material Received A.Endocervical polyp B. Cervical polyp Gross Description Received in 2 parts. A. Received in formalin labeled ?cervical polyp#1? are fragments of rubbery, red-brown and liu white tissue forming an aggregate measuring 1.0 x 0.9 x 0.3 cm which is wrapped in lens paper and entirely submitted for microscopic examination, multiple pieces in cassette A. B. Received in formalin labeled ?cervical polyp#2? are 2 fragments of rubbery, liu white, smooth and glistening tissue together measuring 2.7 x 1.6 x 0.6 cm. Each pieces bisected revealing several cystic structures filled with clear watery fluid ranging from 0.3-0.5 cm in diameter the specimen is entirely submitted for microscopic examination, 4 pieces in cassette B. ([facility]) Copies To Beatrice Morales CNM [facility] [address] [place] [address] Drive [address] [place], [place] [id number] LataCorey reederleatha [facility] Family Medicine [address] [place] [id number] Patient: Jan Darling Age/Sex: 49/F MR#: [id number] Page 1 of 2 Surgical Pathology [id number] [email or web address] NOTE: Unless otherwise stated, all tissue is formalin-fixed and paraffin-embedded. Some or all of the immunohistochemical tests reported herein may have been developed and their performance characteristics determined by [facility]. They have not been cleared or approved by the U.S. Food and Drug Administration (FDA). However, the FDA has determined that such clearance or approval is not necessary. This laboratory is certified under the Clinical Laboratory Improvement Amendments of 1988 (CLIA) as qualified to perform high complexity clinical laboratory testing. Electronically Signed By: Porsche Salcedo 05/16/25 1012 Patient: Jan Darling Age/Sex: 49/F MR#: [id number] Page 2 of [address] [address] Ultrasound Report Signed Patient: Jan Darling MR#: [id number] : 1975 Acct:[id number] Age/Sex: 49 / F ADM Date: 05/23/25 Loc: HO.US Attending Dr: Beatrice Morales CNM Ordering Physician: Beatrice Morales CNM Date of Service: 05/23/25 Procedure(s): US pelvic and transvaginal Accession Number(s): [id number] cc: Beatrice Morales CNM; Jose Guido SAP BUSINESS OBJECTS CONSULTANT~ CLINICAL HISTORY: R93.89 - Abnormal findings on diagnostic imaging of other specified body... Transabdominal and transvaginal pelvic ultrasound Bilateral ovarian Doppler studies Comparison: None Findings: Uterus 7.1 x 3.1 x 3.4 cm. Endometrium 5 mm. Simple and complex nabothian cysts noted. No significant abnormality identified. No significant free fluid. Right ovary 1.9 x 1.6 x 1.5 cm. Left ovary 2.3 x 1.1 x 1.9 cm. No significant focal abnormality. Impression: No significant abnormality This document has been electronically signed by: Narayan Torres MD on 05/25/2025 00:03:19 Dictated By: Narayan Torres MD Signed By: <Electronically signed by Narayan Torres MD in OV> 05/25/25 0004 DD/ 0003 TD/TT: 05/25/25 0003 Outside Production Inspector: Assessment & Plan Assessment & Plan (1) H/O cervical polypectomy: Code(s): Z98.890 - Other specified postprocedural states; Z87.42 - Personal history of other diseases of the female genital tract Plan: Discussed polypectomy pathology results- Diagnosis A. Endocervical polyp, resection: Benign endocervical polyp; negative for dysplasia. B. Cervical polyp, resection: Benign endocervical/endometrial polyp; no atypia or carcinoma. (2) Encounter to discuss test results: Code(s): Z71.2 - Person consulting for explanation of examination or test findings Plan: See ultrasound report. Plan Discussed ultrasound findings- Impression: No significant abnormality The patient expressed understanding and agreement with the plan of care. All of her questions and concerns were addressed to the best of my ability. Lodge Sales Associate annual exam is scheduled for March 2026. This note is constructed using voice recognition software. While every effort has been made to ensure accuracy, mortar man errors may have been included. Coding Level of Care Code Est Pt Level 3 (06075) Diagnoses H/O cervical polypectomy Z98.890; Z87.42 Encounter to discuss test results Z71.2
--- OUTSIDE RECORDS SUMMARY | 2025-05-25 15:43 | XMS_ITS | Clinical Summary ---
Author Organization [employer] Address [address] [place] [address] [address] [place] [address] Care Team Providers Care Public Service Director Name Role Phone Unavailable Primary Care Provider [...] Date of Phone Billing Address Personal/Family Self [phone] ([address] [address]
--- OUTSIDE RECORDS SUMMARY | 2025-05-25 15:43 | XMS_ITS | Patient Health Record ---
Author Organization [facility] enter Address [address] [place] [address] Care Team Providers Care Industrial Cafeteria Manager Name Role Phone Dianablake Sarah Primary Care Provider [phone] Allergies No Known Allergies Reason For Referral [...] Status W/U Status Risk Notes Problem Presbyopia (78988908) Presbyopia (H52.4) Active confirmed Problem Anxiety (26131836) Anxiety (F41.9) Active confirmed Problem Dry eye (H04.129) Active confirmed Plan Of Treatment No Information Insurance Providers Payer Name Payer Address Payer Phone Subscriber Number Group Number Insured Name Patient Relationship to Insured Coverage Start Date Coverage End Date [employer] Medicare Plans [address] [place] [address] [phone] [id number] Jan Darling Self - patient is the insured [facility] [address] [place], [place] [id number] [phone] [id number] Jan Darling Self - patient is the insured Medical (General) History Surgical History Surgery Date(Month/Year)
== END 2025-05-25 18:54 ==
LOC: HO.HWS 14:47
PROVIDERS: PCP Nurse Practitioner Family; Visit Provider Advanced Practice Midwife
DX: Z98.890 Other specified postprocedural states (principal); Z87.42 Personal history of other diseases of the female genital tract; Z71.2 Person consulting for explanation of examination or test findings
CPT/HCPCS: 99213

== ENCOUNTER → 2025-05-25 14:47 | Outpatient (BNVA) | payer MEDICARE, MEDICAID, SELFPAY | PROVIDERS: PCP Nurse Practitioner Family; Visit Provider Advanced Practice Midwife | DX: Z71.2 Person consulting for explanation of examination or test findings (principal); Z87.42 Personal history of other diseases of the female genital tract; Z98.890 Other specified postprocedural states | CPT/HCPCS: 99212 ==

== ENCOUNTER 2025-06-28 10:09 | Outpatient (AMB) | payer MEDICARE, MEDICAID, SELFPAY ==
--- OUTSIDE RECORDS SUMMARY | 2019-01-06 08:30 | XMS_ITS | Continuity of Care Document ---
Author Organization [facility] vices Address [address] [place] [address] Phone Care Team Providers Care Solutions Engineer Name Role Phone Unavailable Unavailable Unavailable Advance Directives Directive Yes / No Effective Date File Name No Information Encounters Encounter Description Practice Location Reason(s) For Visit Diagnoses Date Provider Providers Copied on Encounter [facility], [address] [place] [address], [id number], [place] tel:[phone] [facility] Behavioral Health NO SHOW (chief complaint) No Information 201 9 No Information Family History Family Member Type Diagnosis Age At Onset No Information Payers Payer name Insurance type Covered republican ID Authoriza tion(s) No Information Social History [...]
--- NOTE | 2025-06-28 10:14 | A.OFFPC_ITS ---
Vital Signs 06/28/25 10:26 Height 5 ft 5 in Weight 205 lb BMI 34.1 BP 137/64 Blood Pressure Location Lt brachial Position Sitting Respiration 16 Pulse 77 Pulse Source Pulse Oximeter Temp 97.7 F Temp Source Oral Pulse Oximetry (%) 99 Oxygen Delivery Method Room Air Intake Visit Reasons: CPE 1 yr Intake Note: patient here for CPE Director Of Golf Required: Yes Director Of Golf Language: Hvac/R Service Technician Name: Rubi [id number] Information Interpreted: non-clinical & clinical Is last menstrual period known: Yes Last menstrual period: 04/06/25 Post menopausal: No Patient : No Allergies No Known Allergies Allergy (Verified 06/28/25 10:30) Medication List - Last Reconciled 06/28/25 by Jose Guido CNP cetirizine 10 mg PO DAILY 30 days ibuprofen 600 mg PO Q8H PRN melatonin 3 mg PO BEDTIME PRN Tobacco use date assessed: 06/28/25 Dental Screening Dental Screen Date: 06/28/25 Did you have a dental visit in the last 12 months?: Yes Did you have a dental problem in the last 6 months where you did not have access to dental care?: No Was dental information given to patient?: Patient has dentist HPI HPI Comments History of Present Illness Details 50-year-old female presents for an exten ded physical exam. She admits to taking her medications as prescribed without adverse reactions. Acute issue(s) - None Past Medical History - Congenital bilateral hearing loss, mut ism, obesity, prediabetes, insomnia, myopia (wears glasses) Social History - Nonsmoker. Does not vape. Does not dr ink alcohol. Denies recreational drug use - Has been making healthy dietary choice s. Exercises routinely. Generally sleep well Health maintenance - Last eye exam was 07/2024 months ago w [facility]. She has an eye exam scheduled in 05/2025. Encouraged to sign a release for her PCP to obtain her Ophthalmology record - Last dental visit was in 05/25/2025 - Last tetanus vaccine was more than 10 years ago; received Tdap vaccine today - Has not been vaccinated for the flu ; receives influenza vaccine today - She has never been vaccinated for millan gles; encouraged to get vaccinated for shingles at the local pharmacy - Last pap smear test was in 03/2025: Noelle ta - She has never had mammogram. Mammogram ordered - She has never had a colonoscopy. Refer red to [facility] gastroenterology for a colonoscopy Specialists - [facility] sugar grinder Interpretation by professional fiber design engineer via electronic tablet [facility] Medical History Vaginal odor Polyp at cervical os No pertinent past medical history Surgical History No pertinent past surgical history Social History Housing: Other Housing Other:: [employer] (temporary) Alcohol intake: current Alcohol intake frequency: holidays/special occasions only Patient Tobacco Use Status: Never used Tobacco e-Cigarette/Vaping Use: Never Used Second Hand Smoke Exposure: No service: No Current occupational status: unemployed Current occupational exposures/hazards: No Cognitive needs: No Hearing needs: Yes Vision needs: No Female Reproductive History Menstrual Age of Menarche: 10 Date of last menstrual period: 04/06/25 Questionnaire PHQ-9 Over the last 2 weeks, how often have you been bothered by any of the following problems? 1. Little interest or pleasure in doing things: not at all 2. Feeling down, depressed, or hopeless: not at all 3. Trouble falling or staying asleep, or sleeping too much: several days 4. Feeling tired or having little energy: more than half the days 5. Poor appetite or overeating: not at all 6. Feeling bad about yourself - or that you are a failure or have let yourself or your family down: not at all 7. Trouble concentrating on things, such as reading the newspaper or watching television: several days 8. Moving or speaking so slowly that other people could have noticed. Or the opposite - being so fidgety or restless that you have been moving around a lot more than usual: not at all 9. Thoughts that you would be better off or of hurting yourself in some way: not at all Total score: 4 Depression Screening Interpretation: Negative Depression Screening Done: Yes 14657 - PHQ-9 Billing: Yes Source: Developed by Drs. Garo Ordonez, Jeanie Townsend, Carlos Sandra and colleagues, with an educational pieter from [employer]. Thrive Questionnaire Date Thrive assessed: 06/28/25 I am a: Patient What is your living situation today?: I have a steady place to live Within the past 12 months, did the food you bought not last and you didn't have the money to get more?: Sometimes True Within the past 12 months, did you worry whether your food would run out before you got money to buy more?: Sometimes True Do you have trouble paying for medicines?: No Do you have trouble getting transportation to medical appointments?: No Do you have trouble paying your heating and electricity bill?: No Do you have trouble taking care of your child, family member or friend?: No Do you have trouble with day-to-day activities such as bathing, preparing meals, shopping, managing finances, etc.?: No Are you currently unemployed and looking for a job?: No Are you interested in more education?: No Please select the resources that you would like help with: None Currently or been in a relationship where the following occur: I choose not to answer THRIVE Score: 2 AUDIT C Alcohol Use Questionnaire (AUDIT-C) 1. How often do you have a drink containing alcohol?: Never 3. How often do you have six or more drinks on one occasion?: Never Total Score: 0 Score Reviewed/Action Taken: Yes SANJUANITA-7 AMB Questionnaire SANJUANITA-7 Date SANJUANITA - 7 assessed: 06/28/25 Feeling nervous, anxious, or on edge: 0 = Not at all Not being able to stop or control worryin = Not at all Worrying too much about different things: 0 = Not at all Trouble relaxin = Several days Being so restless that it is hard to sit still: 0 = Not at all Becoming easily annoyed or irritable: 0 = Not at all Feeling afraid as if something awful might happen: 0 = Not at all Total SANJUANITA-7 score (0-4 normal; 5-9 mild; 10-14 moderate; 15-21 severe): 1 Source: Developed by Drs. Garo Ordonez, Jeanie Townsend, Carlos Sandra and colleagues, with an educational pieter from [employer]. SANJUANITA-7 Assessment Billing SANJUANITA-7 Assessment Tool: SANJUANITA-7 Assessment 28387 Review of Systems Const Details: Denies chills, Denies fatigue, Denies fever(s), Denies headache(s) and Denies weakness HEENT Denies change in vision, Denies dizziness, Denies headache(s), Denies hearing loss, Denies nasal congestion, Denies sinus pain, Denies sinus pressure and Denies sore throat Card Denies chest pain, Denies lightheadedness, Denies dyspnea and Denies other (palpitations) Resp Denies cough, Denies dyspnea and Denies wheezing GI Denies abdominal pain, Denies melena, Denies hematochezia, Denies change in bowel habits, Denies dyspepsia and Denies nausea Denies hematuria and Denies dysuria Musc Denies abnormal gait, Denies myalgias, Denies arthralgias, Denies numbness and Denies tingling Skin/Breast Denies rash, Denies unusual bruising and Denies wounds Neuro Denies abnormal gait, Denies dizziness, Denies headache(s), Denies memory loss, Denies numbness, Denies Sensory deficit (Neuro), Denies tingling and Denies weakness Psych Denies anxiety, Denies depression and Denies memory loss Endo Denies cold intolerance, Denies fatigue, Denies heat intolerance, Denies polydipsia and Denies polyuria Sterling/Lymph Denies easy bleeding and Denies easy bruising Aller/Immun Denies wheezing Physical exam (Primary Care) Vital Signs: Last Vital Signs Temp 97.7 F 06/28/25 10:26 Pulse 77 06/28/25 10:26 Resp 16 06/28/25 10:26 BP 137/64 06/28/25 10:26 Pulse Ox 99 06/28/25 10:26 Oxygen Delivery Method Room Air 06/28/25 10:26 BMI result Body Mass Index 34.1 Tobacco/Smoking Status: Tobacco use Status Tobacco use date assessed 06/28/25 06/28/25 10:29 Patient Tobacco Use Status Never used Tobacco 06/28/25 10:16 e-Cigarette/Vaping Use Never Used 06/28/25 10:16 PHQ-9: PHQ-9 Score PHQ-9: Total score 4 06/28/25 11:11 Depression Screening Interpretation: Negative Thrive Assessment: Date of Thrive Assessment Date Thrive assessed 06/28/25 06/28/25 10:32 Currently or been in a relationship where the following occur: I choose not to answer Const Other: General: no acute distress, well developed, alert and awake Nutritional Appearance: well nourished Orientation/consciousness: patient oriented x3 [facility] Head: Yes normocephalic and Yes atraumatic Ears: hearing grossly normal bilaterally and TM's normal bilaterally General nose exam: Normal external nose present and Normal nares present Mouth: Normal oral and palatal mucosa present and moist mucous membranes Teeth and gingiva: dentition normal Throat: Yes oropharynx normal Eyes Pupils: Equal, round and reactive pupils present and Pupil accommodation reflex normal EOM: EOMs intact bilaterally Neck Neck: Yes normal visual inspection, Yes no lymphadenopathy and Yes trachea midline Thyroid: Thyroid normal Carotids: no bruits Lymphatic: no lymphadenopathy noted Chest Chest palpation & inspection: normal inspection of the chest Resp Effort & Inspection: normal respiratory effort Auscultation: clear to auscultation bilaterally Cardio Rate: regular rate Rhythm: regular rhythm Heart sounds: S1 normal heart sound present, S2 normal heart sound present, no gallops, no murmurs and no rubs Bruits: no abdominal aortic bruits and no carotid bruits GI Palpation (GI): No Abdominal aortic bruit present, Soft to palpation, nontender, No hepatosplenomegaly present and No Rebound tenderness present Auscultation: normal bowel sounds General: Yes no CVA tenderness Back/Spine/Pelvis Back: no CVA tenderness Cervical Spine: cervical ROM normal and No Cervical spine tenderness Thoracic/Lumbar Spine: thoraco-lumbar ROM normal, No pain with thoraco-lumbar ROM, No thoracic spinal tenderness and No lumbar spinal tenderness Skin General: warm and dry. Normal skin color. Normal skin turgor Lesions: no lesions Rashes: no rashes Trauma: no lacerations or abrasions Wounds: no wounds Nails: normal Neuro General: patient oriented x3, gait normal and CN's II-XI intact bilaterally Cranial nerves: Yes Equal, round and reactive pupils present Cognition (Neuro): normal cognition Gait exam (Neuro): Normal gait present Motor exam (neuro): 5/5 motor strength present throughout Sensory Exam: No Sensory deficit (Neuro) Deep tendon reflexes (DTR's): Right patellar reflex intensity grade: 2+ and Left patellar reflex intensity grade: 2+ Extrem General: Yes normal to inspection, No edema and No calf tenderness Psych Appearance: grossly normal Affect: normal affect Attitude: cooperative Thought process: Normal thought process present Office Procedures Flu Questionnaire Does the patient have a severe egg allergy?: No Does the patient have severe life threatening allergies?: No Does the patient have a fever or illness today?: No Has the patient ever had Guillain-[place] Syndrome?: No Has the patient ever had any past reaction to a flu shot?: No Results AMB Hemoglobin A1c AMB Hemoglobin A1c 5.7 % Last Edit by Nicki Gama MA on 06/28/25 10:43 Immunizations Fluarix [id number] (PF) 45 mcg (15 mcg x 3)/0.5 mL IM syringe Performing Provider: Jose Guido CNP Performing Location: [facility] Administered by: Estefani Noble RN on 06/28/25 11:13 Dose Route Admin Location Dispensed Lot Number Expiration Date [employer] 0.5 mL IM Right Deltoid 0.5 mL [id number] 04/04/26 05131-124-05 [employer] VIS Given Date VIS Provided VIS Publication Date 06/28/25 Single Vaccine 24 Eligibility Eligibility Date Funding Source Not VFC Eligible 06/28/25 Private Administration Comments: Patient received two injections in the right deltoid: the flu shot and the TDaP vaccine. Flu shot given first and then TDaP slightly below and to the right. Boostrix Tdap 2.5 Lf unit-8 mcg-5 Lf/0.5 mL intramuscular syringe Performing Provider: Jose Guido CNP Performing Location: [facility] Administered by: Estefani Noble RN on 06/28/25 11:13 Dose Route Admin Location Dispensed Lot Number Expiration Date [employer] 0.5 mL IM Right Deltoid 0.5 mL [id number] 08/10/27 17876-617-43 [employer] Total Dispensed Waste 0.5 mL 0 % VIS Given Date VIS Provided VIS Publication Date 06/28/25 Single Vaccine 21 Eligibility Eligibility Date Funding Source Not VFC Eligible 06/28/25 Private Administration Comments: Patient received two injections in the right deltoid: the flu shot and the TDaP vaccine. Flu shot given first and then TDaP slightly below and to the right. Results Reviewed Results Reviewed: Laboratory Last Values Hgb A1c (Clinic) 5.7 % (4.0-6.0) 06/28/25 10:28 Coding Level of Care Code Est Pt Level 3 (71417) Est Pt Prev Care 40-64y(91867) Diagnoses Physical exam, annual Z00.00 Prediabetes R73.03 Obesity (BMI 30-39.9) E66.9 Colon cancer screening Z12.11 Breast cancer screening by mammogram Z12.31 Additional Codes SANJUANITA-7 Assessment Billing - SANJUANITA-7 Assessment Tool: SANJUANITA-7 Assessment 38368 ([id number]) PHQ-9 - 62920 - PHQ-9 Billing: Yes ([id number]) Assessment & Plan Assessment & Plan (1) Physical exam, annual: Code(s): Z00.00 - Encounter for general adult medical examination without abnormal findings Category: Medical Plan: Normal physical exam of a 50-year-old female. No significant functional limitations noted. Continue current treatment regimen. Follow-up to establish care with new PCP in the practice next year. Follow-up his symptoms or concerns. Verbalized understanding and agreed with the plan. (2) Prediabetes: Code(s): R73.03 - Prediabetes Category: Medical Plan: A1c today is 5.7%. Routine exercise and healthy diet, including low carbs encouraged. Verbalized understanding and agreed with the plan. (3) Obesity (BMI 30-39.9): Code(s): E66.9 - Obesity, unspecified Category: Medical Plan: She currently weighs 205 lb, BMI is 34.1. Weight management encouraged. Follow-up as needed. Verbalized understanding and agreed with the plan. (4) Colon cancer screening: Code(s): Z12.11 - Encounter for screening for malignant neoplasm of colon Category: Medical Plan: She has never had a colonoscopy. Referred to [facility] gastroenterology for a colonoscopy. (5) Breast cancer screening by mammogram: Code(s): Z12.31 - Encounter for screening mammogram for malignant neoplasm of breast Category: Medical Plan: She has never had mammogram. Mammogram ordered. Orders: Orders MM screening mammo BI Today Z12.31 - Encounter for screening mammogram for ma lignant neoplasm of breast Influenza [id number] Immunization Today Z23 - Encounter for immunization AMB Hemoglobin A1c Today Z13.9 - Encounter for screening, unspecified TDaP Immunization Today Z23 - Encounter for immunization Referrals Gastroenterology Referral Z12.11 - Encounter for screening for malignant neoplasm of colon
[2025-06-28 10:26] VITALS: BP 137/64; PULSE 77; RESP 16; TEMP 36.5; O2SAT 99; BMI 34.1
--- OUTSIDE RECORDS SUMMARY | 2025-06-28 12:21 | XMS_ITS | Patient Health Record ---
Author Organization [facility] Address [address] [place] [address] Care Team Providers Care Security Police Name Role Phone Dianablake Sarah Primary Care [...] Status W/U Status Risk Notes Problem Presbyopia (43647729) Presbyopia (H52.4) Active confirmed Problem Anxiety (04414248) Anxiety (F41.9) Active confirmed Problem Tear film insufficiency (82750418) Dry eye (H04.129) Active confirmed Plan Of Treatment No Information Insurance Providers Payer Name Payer Address Payer Phone Subscriber Number Group Number Insured Name Patient Relationship to Insured Coverage Start Date Coverage End Date [employer] Plans [address] [place] [address] [id number] Jan Darling Self - patient is the insured VAIBHAV Babcock [address] [place], [place] [id number] [phone] [id number] Jan Darling Self - patient is the insured Medical (General) History Surgical History Surgery Date(Month/Year)
--- OUTSIDE RECORDS SUMMARY | 2025-06-28 12:21 | XMS_ITS | Clinical Summary ---
Author Organization [employer] Address [address] [place] [address] [address] [place] [address] Care Team Providers Care Campus Police Officer Name Role Phone Unavailable Primary Care Provider [...] 2005 HPV/Cotest 2005 Mammogram 2015 COVID-19 Vaccine (2024-2 6 season) 2025 09/23/2022, 07/17/2021, 03/20/2021 Influenza Vaccine (#1) 2025 Pneumococcal Vaccine: 50+ Years (1 of 1 - PCV) 2025 Zoster Vaccines (1 of 2) 2025 [...] age to complete this topic Insurance [place] [address] [place] [id number]
== END 2025-06-28 11:11 | disposition home or self-care (01) ==
LOC: HO.HMCFM 10:10
PROVIDERS: PCP Nurse Practitioner Family; Visit Provider Nurse Practitioner Family
DX: Z00.00 Encounter for general adult medical examination without abnormal findings (principal); R73.03 Prediabetes; E66.9 Obesity, unspecified; Z68.34 Body mass index [BMI] 34.0-34.9, adult; Z12.11 Encounter for screening for malignant neoplasm of colon; Z12.31 Encounter for screening mammogram for malignant neoplasm of breast; Z23 Encounter for immunization

== ENCOUNTER → 2025-06-28 10:09 | Outpatient (BNVA) | payer MEDICARE, MEDICAID, SELFPAY | PROVIDERS: PCP Nurse Practitioner Family; Visit Provider Nurse Practitioner Family | DX: Z00.00 Encounter for general adult medical examination without abnormal findings (principal); E66.9 Obesity, unspecified; R73.03 Prediabetes; Z23 Encounter for immunization; Z68.34 Body mass index [BMI] 34.0-34.9, adult | CPT/HCPCS: 83036; 90471; 90472; 90656; 90715; 96127; 99396 ==